=== PATIENT | male | born 1950 | race Two or more races ===

== ENCOUNTER 2017-11-05 18:15 | Inpatient (IN) | payer MEDICARE, OTHER ==
[~2017-11-05] VITALS: Ht 167.6 cm; Wt 66.2 kg
[2017-11-05] MEDS ORDERED: IV NORMAL SALINE 500 ML BAG IV ONE (18:45)
[2017-11-05 18:49] LABS: BASOPHILS # (AUTO) 0.1 K/uL (0.0-8.0); BASOPHILS % (AUTO) 1.4 % (0.0-2.0); EOSINOPHILS # (AUTO) 0.1 K/uL (0.0-0.7); EOSINOPHILS % (AUTO) 1.3 % (0.0-7.0); HEMATOCRIT 37.1 % (36.7-47.1); HEMOGLOBIN 12.4 g/dL (12.5-16.3); LYMPHOCYTES # (AUTO) 1.2 K/uL (20.0-40.0); MEAN CORPUSCULAR HEMOGLOBIN 28.3 uug (23.8-33.4); MEAN CORPUSCULAR HGB CONC 33 g/dL (32.5-36.3); MEAN CORPUSCULAR VOLUME 84.9 fL (73.0-96.2); MONOCYTES # (AUTO) 0.8 K/uL (2.0-10.0); MONOCYTES % (AUTO) 16.6 % (0.0-11.0); NEUTROPHILS # (AUTO) 2.5 K/uL (1.8-8.9); NEUTROPHILS % (AUTO) 54.7 % (38.5-71.5); PLATELET COUNT (AUTO) 449 K/uL (152-348); RED BLOOD CELL COUNT(AUTO) 4.37 MIL/uL (4.06-5.63); WHITE BLOOD COUNT (AUTO) 4.6 K/uL (3.6-10.2)
[2017-11-05 18:55] LABS: NEUTROPHILS % (MANUAL) 0 % (42-75)
[2017-11-05] MEDS ORDERED: ALPR0.255 PO ×2 (18:59→19:00)
[2017-11-05] MEDS ORDERED: LEVE500T20 PO (18:59)
[2017-11-05] MEDS ORDERED: ACET-2154 PO (18:59)
[2017-11-05] MEDS ORDERED: ASPI-605 PO (18:59)
[2017-11-05] MEDS ORDERED: TRAM50TA2 PO (18:59)
[2017-11-05] MEDS ORDERED: CHOL100043 PO (18:59)
[2017-11-05] MEDS ORDERED: DOCU100C36 PO (18:59)
[2017-11-05] MEDS ORDERED: RANI150T8 PO (18:59)
[2017-11-05] MEDS ORDERED: ATOR20TA PO (18:59)
[2017-11-05 19:04] LABS: BILIRUBIN,DIRECT 0.1 mg/dL (0.0-0.2); BILIRUBIN,TOTAL 0.3 mg/dL (0.2-1.0); CREATININE 0.8 mg/dL (0.6-1.3); POTASSIUM 3.8 mmol/L (3.5-5.1); TOTAL PROTEIN, SERUM 7.5 g/dL (6.4-8.2)
--- NOTE | 2017-11-05 19:14 | NUR ---
Pt back to ER from CT.
--- NOTE | 2017-11-05 19:25 | NUR ---
Urine Sample collected, sent to lab.
[2017-11-05 19:45] LABS: *BILIRUBIN,URIN NEGATIVE (NEGATIVE); *BLOOD, URINE Trace-intact (NEGATIVE); *CLARITY,URINE SLIGHTLY CLOUDY (CLEAR); *COLOR,URINE YELLOW (YELLOW); *KETONES,URINE NEGATIVE (NEGATIVE); *PROTEIN,URINE NEGATIVE (NEGATIVE); *UROBILINOGEN,URINE 0.2 E.U./dl (NORMAL); LEUKOCYTE ESTERASE ,URINE NEGATIVE (NEGATIVE); NITRITE, URINE NEGATIVE (NEGATIVE); UGLUCOSE NEGATIVE (NEGATIVE)
[2017-11-05 19:48] LABS: BACTERIA,URINE NONE SEEN /HPF (NONE SEEN); SQUAMOUS EPITHELIAL CELL,UR FEW /HPF (NONE SEEN); WBC,URINE 0-3 /HPF (0-3)
--- NOTE | 2017-11-05 19:48 | NUR ---
Dr. Alston speaking with [employer] MANDY Molina.
[2017-11-05] MEDS ORDERED: ASPIRIN 300 MG RECTAL SUPP RC ONE ×2 (20:00→20:06)
[2017-11-05] MEDS ORDERED: Z GUARD REMEDY PASTE 57 GM TUBE TOP PRN (20:15)
[2017-11-05] MEDS ORDERED: HYDROCODONE/APAP 5-325MG TABLET PO PRN (20:15)
[2017-11-05] MEDS ORDERED: ALPRAZOLAM 0.25 MG TABLET PO PRN (20:15)
[2017-11-05] MEDS ORDERED: MAGNESIUM HYDROXIDE 30 ML LIQUID UDC PO PRN (20:15)
[2017-11-05] MEDS ORDERED: ONDANSETRON 4 MG/2 ML VIAL IV PRN (20:15)
[2017-11-05] MEDS ORDERED: HYDROCODONE/APAP 10-325 MG TABLET PO PRN (20:15)
[2017-11-05] MEDS ORDERED: ACETAMINOPHEN 325 MG TABLET PO PRN (20:15)
--- NOTE | 2017-11-05 20:21 | NUR ---
Report given to Otis ABDI Tele.
[2017-11-05 20:25] VITALS: BP 105/64
--- NOTE | 2017-11-05 20:40 | NUR ---
NEW ADMIT FROM ER, ADMITTED FOR LEFT SIDED WEAKNESS. PATIENT IS AAXO1 WITH CONFUSION. NO S/S OF PAIN ACUTE DISTRESS ON ASSESSMENT. PATIENT IS ON TELE WITH SR AT 70. SAFETY AND ASPIRATION PRECAUTIONS IN PLACE. WILL CONTINUE TO MONITOR PATIENT
[2017-11-05] MEDS: DOCUSATE SODIUM 100 MG CAPSULE PO SCH (21:42)
[2017-11-05] MEDS: IV NS 1000 ML 1,000 ML IV PRN (21:42)
[2017-11-05 23:37] VITALS: BP 109/63
[2017-11-06 03:39] VITALS: BP 117/70
[2017-11-06 06:14] LABS: BASOPHILS # (AUTO) 0.1 K/uL (0.0-8.0); BASOPHILS % (AUTO) 1.5 % (0.0-2.0); EOSINOPHILS # (AUTO) 0.1 K/uL (0.0-0.7); EOSINOPHILS % (AUTO) 1.8 % (0.0-7.0); HEMATOCRIT 36.8 % (36.7-47.1); HEMOGLOBIN 12.2 g/dL (12.5-16.3); LYMPHOCYTES # (AUTO) 1.2 K/uL (20.0-40.0); LYMPHOCYTES % (AUTO) 29.7 % (20.5-51.5); MEAN CORPUSCULAR HEMOGLOBIN 28.4 uug (23.8-33.4); MEAN CORPUSCULAR HGB CONC 33 g/dL (32.5-36.3); MEAN CORPUSCULAR VOLUME 85.6 fL (73.0-96.2); MONOCYTES # (AUTO) 0.6 K/uL (2.0-10.0); MONOCYTES % (AUTO) 15.3 % (0.0-11.0); NEUTROPHILS # (AUTO) 2.1 K/uL (1.8-8.9); NEUTROPHILS % (AUTO) 51.7 % (38.5-71.5); PLATELET COUNT (AUTO) 406 K/uL (152-348)
[2017-11-06 06:27] LABS: BILIRUBIN,DIRECT 0.1 mg/dL (0.0-0.2); BILIRUBIN,TOTAL 0.5 mg/dL (0.2-1.0); CREATININE 0.7 mg/dL (0.6-1.3); MAGNESIUM 1.8 mg/dL (1.8-2.4); PHOSPHOROUS 2.9 mg/dL (2.5-4.9); POTASSIUM 3.6 mmol/L (3.5-5.1); TOTAL PROTEIN, SERUM 6.9 g/dL (6.4-8.2)
--- NOTE | 2017-11-06 06:29 | NUR ---
PATIENT SLEPT WELL MOST OF THE SHIFT, NO S/S OF PAIN OR ACUTE DISTRESS ON THIS SHIFT. REMAINS CONFUSED, SAFETY MEASURES MAINTAINED AT ALL TIMES
[2017-11-06] MEDS: PANTOPRAZOLE SODIUM 40 MG VIAL IV SCH (08:15)
[2017-11-06] MEDS: ATORVASTATIN 20 MG TABLET PO SCH (08:16)
[2017-11-06] MEDS: LEVETIRACETAM 500 MG TABLET PO SCH ×2 (08:16→16:17)
[2017-11-06] MEDS: CHOLECALCIFEROL 1,000 UNIT TABLET PO SCH (08:16)
[2017-11-06 08:19] LABS: NEUTROPHILS % (MANUAL) 55 % (42-75)
[2017-11-06 08:20] LABS: EOSINOPHILS % (MANUAL) 2 % (0-8); LYMPHOCYTES % (MANUAL) 30 % (20-40); MONOCYTES % (MANUAL) 13 % (2-10)
[2017-11-06 11:13] VITALS: BP 107/66
--- NOTE | 2017-11-06 12:47 | NUR ---
DR DENNIS SAW PATIENT AND DOESN'T THINK MRI IS NECESSARY, NAE, MANDY AWARE AND D/C'D MRI ORDER. AMBULANCE WAS CANCELLED AND LEFT A MESSAGE FOR [facility]
[2017-11-06 15:06] VITALS: BP 105/63
--- NOTE | 2017-11-06 18:38 | NUR ---
Patient alert, able to follow some commands but remains confused. Positive for MRSA nares, placed on isolation and bactroban to be started today. Patient was able to work with PT today. VSS, bed alarm on, call light in reach
[2017-11-06 19:00] VITALS: BP 122/72
--- NOTE | 2017-11-06 19:44 | NUR ---
PATIENT IS AWAKE IN BED, AAOX1 WITH CONFUSION. ABLE TO FOLLOW SIMPLE DIRECTIONS AT TIMES. NO S/S OF PAIN OR ACUTE DISTRESS NOTED ON ASSESSMENT. SAFETY MEASURES IN PLACE. BED ALARM ON, CALL LGHT LEFT WITHIN PATIENT'S REACH
[2017-11-06] MEDS: DOCUSATE SODIUM 100 MG CAPSULE PO SCH (20:26)
[2017-11-06] MEDS: MUPIROCIN 2% OINT 22 GM TUBE NS SCH (20:26)
[2017-11-07 04:00] VITALS: BP 121/80
[2017-11-07] MEDS: IV NS 1000 ML 1,000 ML IV PRN (05:36)
--- NOTE | 2017-11-07 06:09 | NUR ---
PATIENT SLEPT WELL ON THIS SHIFT, CONTINUES TO BE CONFUSED. NO ACUTE DISTRESS OR ANY S/S OF PAIN NOTED ON THIS SHIFT. NO SIGNIFICANT CHANGES ON THIS SHIFT. SAFETY MEASURES MAINTAINED AT ALL TIMES
[2017-11-07 07:13] LABS: EOSINOPHILS # (AUTO) 0.1 K/uL (0.0-0.7); EOSINOPHILS % (AUTO) 1.2 % (0.0-7.0); HEMATOCRIT 35.9 % (36.7-47.1); HEMOGLOBIN 12.2 g/dL (12.5-16.3); LYMPHOCYTES # (AUTO) 1.3 K/uL (20.0-40.0); LYMPHOCYTES % (AUTO) 24.6 % (20.5-51.5); MEAN CORPUSCULAR HEMOGLOBIN 28.7 uug (23.8-33.4); MEAN CORPUSCULAR HGB CONC 34 g/dL (32.5-36.3); MEAN CORPUSCULAR VOLUME 84.9 fL (73.0-96.2); MONOCYTES # (AUTO) 0.6 K/uL (2.0-10.0); MONOCYTES % (AUTO) 10.7 % (0.0-11.0); NEUTROPHILS # (AUTO) 3.3 K/uL (1.8-8.9); NEUTROPHILS % (AUTO) 62.5 % (38.5-71.5); PLATELET COUNT (AUTO) 402 K/uL (152-348); RED BLOOD CELL COUNT(AUTO) 4.23 MIL/uL (4.06-5.63); WHITE BLOOD COUNT (AUTO) 5.2 K/uL (3.6-10.2)
[2017-11-07 07:23] LABS: CREATININE 0.8 mg/dL (0.6-1.3); POTASSIUM 3.4 mmol/L (3.5-5.1)
--- NOTE | 2017-11-07 07:41 | NUR ---
Sleeping, appears comfortable. IVF infusing. Contact precaution re enforced
[2017-11-07] MEDS: MUPIROCIN 2% OINT 22 GM TUBE NS SCH ×2 (08:56→20:30)
[2017-11-07] MEDS: PANTOPRAZOLE SODIUM 40 MG VIAL IV SCH (08:56)
[2017-11-07] MEDS: ATORVASTATIN 20 MG TABLET PO SCH (08:57)
[2017-11-07] MEDS: CHOLECALCIFEROL 1,000 UNIT TABLET PO SCH (08:57)
[2017-11-07] MEDS: LEVETIRACETAM 500 MG TABLET PO SCH ×2 (08:57→16:53)
--- NOTE | 2017-11-07 09:00 | NUR ---
Able to feed himself with tray set up and taking po medications
--- NOTE | 2017-11-07 10:00 | NUR ---
Noted at the edge of the foot of the bed with bed alarm on and saying "he's going to work" Repositioned back in bed comfortably. Bed alarm on
[2017-11-07 11:28] VITALS: BP 115/78
[2017-11-07] MEDS ORDERED: IV NS 1000 ML 1,000 ML IV ONE (11:45)
--- NOTE | 2017-11-07 11:45 | NUR ---
IVF rate decreased to 50ml/hr
[2017-11-07] MEDS ORDERED: POTASSIUM CHLORIDE 20 MEQ TAB.PRT.SR PO ONE (14:00)
[2017-11-07 15:28] VITALS: BP 120/77
--- NOTE | 2017-11-07 18:40 | NUR ---
Ate fairly. With BM after. Incontinence care done. Repositioned in bed comfortably. Bed alarm on.
--- NOTE | 2017-11-07 19:25 | NUR ---
RECEIVED PT AWAKE, ALERT, AND ORIENTEDX2.PT TRYING TO TAKE OUT HIS GOWN. IV INTACT AND PATENT. BECKHAM CATHETER INTACT. CALL LIGHT WITHIN REACH, BED ALARM ON ,AND IN LOW POSITION. SIDE RAILS UPX2. WILL CONTINUE TO MONITOR.
[2017-11-07 19:38] VITALS: BP 113/69
[2017-11-07] MEDS: DOCUSATE SODIUM 100 MG CAPSULE PO SCH (20:30)
[2017-11-08 03:40] VITALS: BP 138/78
--- NOTE | 2017-11-08 06:21 | NUR ---
PT SLEPT THROUGHOUT THE SHIFT . PT SHOWS NO SIGNS OF DISTRESS. PT IV INTACT AND PATENT. BECKHAM CATHETER INTACT. PRESCRIBED MEDICATION GIVEN AND PT TOLERATED IT WELL. PT TRYING TO TAKE OUT HIS GOWN. CALL LIGHT WITHIN REACH. BED ALARM ON AND IN LOW POSITION. WILL ENDORSE ACCORDINGLY TO INCOMING SHIFT NURSE.
[2017-11-08] MEDS ORDERED: PANTOPRAZOLE SODIUM 40 MG TABLET.DR PO SCH (07:00)
[2017-11-08 07:31] LABS: CREATININE 0.8 mg/dL (0.6-1.3); POTASSIUM 3.3 mmol/L (3.5-5.1)
--- NOTE | 2017-11-08 07:38 | NUR ---
Sleeping, not in distress. Appears comfortable
[2017-11-08] MEDS: ATORVASTATIN 20 MG TABLET PO SCH (08:46)
[2017-11-08] MEDS: LEVETIRACETAM 500 MG TABLET PO SCH ×2 (08:46→17:22)
[2017-11-08] MEDS: MUPIROCIN 2% OINT 22 GM TUBE NS SCH (08:46)
[2017-11-08] MEDS: CHOLECALCIFEROL 1,000 UNIT TABLET PO SCH (08:46)
[2017-11-08] MEDS ORDERED: POTASSIUM CHLORIDE 20 MEQ TAB.PRT.SR PO ONE (10:30)
[2017-11-08 11:28] VITALS: BP 110/73
[2017-11-08 15:18] VITALS: BP 125/69
--- NOTE | 2017-11-08 16:06 | NUR ---
With discharge order to SNF. Coordinated back to [facility]. Report given to Seth. Ambulance pick [phone]
--- NOTE | 2017-11-08 18:22 | NUR ---
Saline lock removed. Ate dinner fairly. Discharged per gurney/ambulance in fair condition, not in distress, afebrile.
== END 2017-11-08 18:40 | DRG 91 ==
LOC: ER 18:18 → TELE 20:31 → MED 11-06 15:48
PROVIDERS: ADMIT Nurse Practitioner Acute Care; ATTEND Nurse Practitioner Acute Care
PROC: 05H533Z Insertion of Infusion Device into Right Subclavian Vein, Percutaneous Approach (ICD-10-PCS; principal; 2017-11-06)
DX: R29.818 Other symptoms and signs involving the nervous system (principal); G93.40 Encephalopathy, unspecified; E46 Unspecified protein-calorie malnutrition; S06.9X0S Unspecified intracranial injury without loss of consciousness, sequela; X58.XXXS Exposure to other specified factors, sequela; R13.10 Dysphagia, unspecified; M95.2 Other acquired deformity of head; N40.0 Benign prostatic hyperplasia without lower urinary tract symptoms; Z87.440 Personal history of urinary (tract) infections; E78.5 Hyperlipidemia, unspecified; I70.0 Atherosclerosis of aorta; G93.89 Other specified disorders of brain; Z22.322 Carrier or suspected carrier of Methicillin resistant Staphylococcus aureus
CPT/HCPCS: 36415; 70030-TC; 70450; 71045; 83690; 83735; 84100; 85025; 87086; 92610; 93005; 93307; 93880; 97110; 97116; 97165; 97530; A4663; C1758; C9113; J7030; J7040

== ENCOUNTER 2017-11-24 00:53 | Inpatient (IN) | payer MEDICARE, OTHER ==
[~2017-11-24] VITALS: Ht 167.6 cm; Wt 68.9 kg
[2017-11-24] VITALS (10 sets, daily range): BP systolic 94–131; BP diastolic 57–77
[~2017-11-24 00:53] MED LIST: ACET-2154 PO; ALPR0.255 PO; ASPI-605 PO; ATOR20TA PO; CHOL100043 PO; DOCU100C36 PO; LEVE500T20 PO; RANI150T8 PO; TRAM50TA2 PO
[2017-11-24 01:40] LABS: BASOPHILS % (AUTO) 0.4 % (0.0-2.0); EOSINOPHILS # (AUTO) 0.1 K/uL (0.0-0.7); EOSINOPHILS % (AUTO) 1.1 % (0.0-7.0); HEMOGLOBIN 12.7 g/dL (12.5-16.3); LYMPHOCYTES # (AUTO) 1.6 K/uL (20.0-40.0); LYMPHOCYTES % (AUTO) 17.3 % (20.5-51.5); MEAN CORPUSCULAR HEMOGLOBIN 28.5 uug (23.8-33.4); MEAN CORPUSCULAR HGB CONC 34 g/dL (32.5-36.3); MEAN CORPUSCULAR VOLUME 84.8 fL (73.0-96.2); MONOCYTES # (AUTO) 0.8 K/uL (2.0-10.0); MONOCYTES % (AUTO) 9.1 % (0.0-11.0); NEUTROPHILS # (AUTO) 6.5 K/uL (1.8-8.9); NEUTROPHILS % (AUTO) 72.1 % (38.5-71.5); PLATELET COUNT (AUTO) 225 K/uL (152-348); RED BLOOD CELL COUNT(AUTO) 4.48 MIL/uL (4.06-5.63)
[2017-11-24] MEDS ORDERED: PANTOPRAZOLE SODIUM IV 80 MG in IV DEXTROSE 5% 100 ML IV ONE (01:45)
[2017-11-24] MEDS ORDERED: PANTOPRAZOLE SODIUM IV 80 MG in IV DEXTROSE 5% 500 ML IV ONE (01:45)
--- NOTE | 2017-11-24 01:45 | NUR ---
[facility]. Waiting for Dr Mckeon to call back
[2017-11-24 01:49] LABS: CREATININE 0.9 mg/dL (0.6-1.3); POTASSIUM 3.8 mmol/L (3.5-5.1)
--- NOTE | 2017-11-24 01:49 | NUR ---
Dr Millan spoke with Dr Mckeon for admission
[2017-11-24 01:55] LABS: BILIRUBIN,DIRECT 0.1 mg/dL (0.0-0.2); BILIRUBIN,TOTAL 0.2 mg/dL (0.2-1.0); TOTAL PROTEIN, SERUM 7.2 g/dL (6.4-8.2)
[2017-11-24] MEDS ORDERED: PANTOPRAZOLE SODIUM 40 MG VIAL ONE ×2 (02:08)
[2017-11-24] MEDS ORDERED: Z GUARD REMEDY PASTE 57 GM TUBE TOP PRN (02:15)
[2017-11-24] MEDS ORDERED: HYDROCODONE/APAP 5-325MG TABLET PO PRN (02:15)
[2017-11-24] MEDS ORDERED: ALPRAZOLAM 0.25 MG TABLET PO PRN (02:15)
[2017-11-24] MEDS ORDERED: ONDANSETRON 4 MG/2 ML VIAL IV PRN (02:15)
[2017-11-24] MEDS ORDERED: MAGNESIUM HYDROXIDE 30 ML LIQUID UDC PO PRN (02:15)
[2017-11-24] MEDS ORDERED: ACETAMINOPHEN 325 MG TABLET PO PRN (02:15)
--- NOTE | 2017-11-24 02:17 | NUR ---
REPORT GIVEN TO CCU NURSECARMEN
[2017-11-24] MEDS ORDERED: IV NORMAL SALINE 1000 ML BAG IV ONE (02:45)
--- NOTE | 2017-11-24 03:05 | NUR ---
Pt. admitted to CCU, under care of Dr. ENGLISH Belongs List completed
--- NOTE | 2017-11-24 03:15 | NUR ---
Received patient via juan david, from ER. Admited to CCU #4; as, DARY over-flow. NIKHIL @ 3mm. Wears helmet, cover flat frontal skull; skin intact. Small amount of bright red blood from rectum & small brown formed stool; wears diaper. Protonix gtt to left PIV via pump. SR / monitor. Non-verbal at this time. Addendum: 11/24/17 at 0412 by CARMEN GRAF RN Does not move lower extremities, at this time. Upper extremities very strong.
[2017-11-24 05:14] LABS: BASOPHILS % (AUTO) 0.4 % (0.0-2.0); EOSINOPHILS # (AUTO) 0.1 K/uL (0.0-0.7); EOSINOPHILS % (AUTO) 1.2 % (0.0-7.0); HEMATOCRIT 36.3 % (36.7-47.1); HEMOGLOBIN 11.9 g/dL (12.5-16.3); LYMPHOCYTES # (AUTO) 1.3 K/uL (20.0-40.0); LYMPHOCYTES % (AUTO) 17.7 % (20.5-51.5); MEAN CORPUSCULAR HEMOGLOBIN 27.6 uug (23.8-33.4); MEAN CORPUSCULAR HGB CONC 33 g/dL (32.5-36.3); MEAN CORPUSCULAR VOLUME 84.1 fL (73.0-96.2); MONOCYTES # (AUTO) 0.6 K/uL (2.0-10.0); MONOCYTES % (AUTO) 7.8 % (0.0-11.0); NEUTROPHILS # (AUTO) 5.5 K/uL (1.8-8.9); NEUTROPHILS % (AUTO) 72.9 % (38.5-71.5); PLATELET COUNT (AUTO) 192 K/uL (152-348); RED BLOOD CELL COUNT(AUTO) 4.32 MIL/uL (4.06-5.63); WHITE BLOOD COUNT (AUTO) 7.5 K/uL (3.6-10.2)
[2017-11-24 05:18] LABS: CREATININE 0.9 mg/dL (0.6-1.3); POTASSIUM 3.7 mmol/L (3.5-5.1)
[2017-11-24] MEDS: IV NS 1000 ML 1,000 ML IV PRN ×2 (07:36→20:51)
--- NOTE | 2017-11-24 07:58 | NUR ---
RECEIVED A 67 Y/O MALE PT A CASE OF GI BLEEDING. PT IS ASLEEP THOUGH ALERT DISORIENTED, BREATHING VIA ROOM AIR, CONNECTED TO ECG MONITOR SHOWING SR PT IS WEARING A HELMET TO COVER HIS FRONTAL SKULL DUE TO PREVIOUS CRANIOTOMY. HAS A LT PERIPHERAL LINE ON HIS WRIST G20 RECEIVING PROTONIX 8MG/HR.PT IS INCONTINENT AND URINATING FREELY
[2017-11-24] MEDS: PANTOPRAZOLE SODIUM IV 40 MG in IV DEXTROSE 5% 100 ML IV SCH ×2 (08:27→14:00)
[2017-11-24] MEDS: LEVETIRACETAM 500 MG TABLET PO SCH ×2 (08:59→17:40)
[2017-11-24 09:41] LABS: THYROID STIMULATING HORMONE 0.555 mIU/mL (0.358-3.740)
[2017-11-24] MEDS ORDERED: PANTOPRAZOLE SODIUM 40 MG VIAL IV SCH (21:00)
[2017-11-24] MEDS ORDERED: DIATR MEGLU/DIATRIZOATE SODIUM 30 ML SOLUTION ONE (22:13)
[2017-11-24] MEDS ORDERED: MAGNESIUM CITRATE 296 ML BOTTLE PO ONE (22:30)
--- NOTE | 2017-11-24 22:40 | NUR ---
SPOKE TO , ABOUT PROCEDURES THAT SHE WANTED THE PT TO GO THRU., ORDERS OBTAINED.
--- NOTE | 2017-11-24 22:50 | NUR ---
OBTAINED CONSENT FOR BLOOD FROM DAUGHTER NICO.
--- NOTE | 2017-11-24 22:50 | NUR ---
SPOKE TO PT DAUGHTER NICO ABOUT CT ABDOMEN PROCEDURE, EGD AND COLONOSCOPY.. UNDERSTOOD REASONS FOR THESE TESTS. OBTAINED PHONE CONSENT. FOR THESE TESTS.
[2017-11-24] MEDS ORDERED: FLEET ENEMA 133 ML BOTTLE RC ONE (23:00)
[2017-11-24] MEDS ORDERED: GOLYTELY 4000 ML BOTTLE PO ONE (23:00)
[2017-11-25] VITALS (7 sets, daily range): BP systolic 99–125; BP diastolic 52–78
[2017-11-25] MEDS ORDERED: FLEET ENEMA 133 ML BOTTLE RC ONE ×2 (03:03→18:00)
[2017-11-25] MEDS ORDERED: MAGNESIUM CITRATE 296 ML BOTTLE ONE (03:03)
[2017-11-25] MEDS ORDERED: IV NORMAL SALINE 250 ML IV ONE (04:01)
[2017-11-25] MEDS ORDERED: SWABABLE VALVE TRANSFER SET EA MC ONE (04:01)
[2017-11-25] MEDS ORDERED: IOHEXOL 300MG/ML 100 ML INFUS..BTL ONE (04:01)
--- NOTE | 2017-11-25 04:10 | NUR ---
went down for cr of abdomen/pelvis.
--- NOTE | 2017-11-25 04:45 | NUR ---
BACK FROM CT TOLERATED PROCEDURE WELL.
[2017-11-25 05:57] LABS: BASOPHILS % (AUTO) 0.7 % (0.0-2.0); EOSINOPHILS # (AUTO) 0.1 K/uL (0.0-0.7); EOSINOPHILS % (AUTO) 1.7 % (0.0-7.0); HEMATOCRIT 35.2 % (36.7-47.1); HEMOGLOBIN 11.8 g/dL (12.5-16.3); LYMPHOCYTES # (AUTO) 1.2 K/uL (20.0-40.0); LYMPHOCYTES % (AUTO) 18.7 % (20.5-51.5); MEAN CORPUSCULAR HEMOGLOBIN 28.7 uug (23.8-33.4); MEAN CORPUSCULAR HGB CONC 33 g/dL (32.5-36.3); MEAN CORPUSCULAR VOLUME 85.9 fL (73.0-96.2); MONOCYTES # (AUTO) 0.6 K/uL (2.0-10.0); MONOCYTES % (AUTO) 9.5 % (0.0-11.0); NEUTROPHILS # (AUTO) 4.5 K/uL (1.8-8.9); NEUTROPHILS % (AUTO) 69.4 % (38.5-71.5); PLATELET COUNT (AUTO) 195 K/uL (152-348); WHITE BLOOD COUNT (AUTO) 6.4 K/uL (3.6-10.2)
[2017-11-25 06:12] LABS: BILIRUBIN,TOTAL 0.7 mg/dL (0.2-1.0); CREATININE 0.9 mg/dL (0.6-1.3); MAGNESIUM 1.8 mg/dL (1.8-2.4); PHOSPHOROUS 3.3 mg/dL (2.5-4.9); POTASSIUM 3.9 mmol/L (3.5-5.1)
--- NOTE | 2017-11-25 07:30 | NUR ---
RECIEVED PT LYING IN BED, AWAKE AND VERBALLY RESPONSIVE WITH SOFT VOICE. SPEAKS ONLY HONDURAN. ALL EXTREMETIES ARE WEAK, LOWER LEGS ARE STIFFED.AND RIGID. HR SR NO ECTOPY. COLOR IS GOOD. MAIN IVF ON THE LEFT FA INFUSING WELL AT 75ML/HR. KEPT NPO, PENDING SCHEDULE FOR EGD AND COLONOSCOPY.
--- NOTE | 2017-11-25 08:00 | NUR ---
SEEN AND EXAMINED BY EMPERATRIZ PANEL LAY UP WORKER WITH NEW ORDERS. PT DOWNGRADED TO MEDSURG STATUS. HOUSE SUP MADE AWARE.
--- NOTE | 2017-11-25 08:00 | NUR ---
HAS VERY SMALL LIQUID BM, ORANGE RED IN COLOR. CLEANED UP. OFFERED ANOTHER CUP OF GOLYTELY AND ABLE TO SWALLOW VERY WELL.
--- NOTE | 2017-11-25 08:30 | NUR ---
CALLED UP QUINTEN GALVAN REGARDING PT'S PROCEEDURE AND INFORMED HER OF CT RESULT. NO PROCEEDURE SCHEDULE FOR TODAY, BUT MOVED FOR TOMORROW. PLACED PT ON CLEAR LIQUIDS ORDERED.
--- NOTE | 2017-11-25 09:30 | NUR ---
BED ASSIGNED TO PT TO RM 209. REPORT GIVEN TO ANTHONY ABDI. PT TRANSFERRED TO RM 209 VIA BED. CONDITION IS STABLE. NO BLEEDING NOTED AT THIS TIME.
--- NOTE | 2017-11-25 11:17 | NUR ---
PT ARRIVED TO THE UNIT, WITH NO ACUTE DISTRESS, CALM, COOPERATIVE, SPEAKS SLOWLY AND PROCESSES THOUGHTS SLOWLY, WEAKNESS IN ALL EXTREMITIES. PT HAS NO SIGNS OF ACUTE DISTRESS AT THIS TIME. CONTINUE TO MONITOR PT.
[2017-11-25] MEDS: LEVETIRACETAM 500 MG TABLET PO SCH ×2 (11:35→20:33)
[2017-11-25] MEDS: PANTOPRAZOLE SODIUM 40 MG VIAL IV SCH ×2 (11:35→20:33)
[2017-11-25] MEDS: IV NS 1000 ML 1,000 ML IV PRN (13:05)
[2017-11-25] MEDS ORDERED: GOLYTELY 4000 ML BOTTLE PO ONE (18:00)
[2017-11-25] MEDS ORDERED: MAGNESIUM CITRATE 296 ML BOTTLE PO ONE (18:00)
--- NOTE | 2017-11-25 18:37 | NUR ---
PT HAS VERY LOOSE STOOL. ENEMA HELD.
--- NOTE | 2017-11-25 19:20 | NUR ---
RECEIVED PATIENT LYING IN BED. AOX1. RWANDAN SPEAKING ONLY. IN NO ACUTE DISTRESS. APPEARS CALM AND RELAX. IV SITE ON BOTH FA INTACT AND PATENT. IVF INFUSING ON LEFT HAND. SAFETY MEASURE INITIATED AND CALL JAY WITHIN REACH.
--- NOTE | 2017-11-25 19:46 | NUR ---
PT HAS MRSA OF THE NARES AND IS ON ISOLATION. PT IS RESTING IN BED WITH NO SIGNS OF ACUTE DISTRESS. SHIFT REPORT GIVEN TO BELLPERSON NURSE.
--- NOTE | 2017-11-25 23:59 | NUR ---
PATIENT TOLERATED BOWEL PREP.
[2017-11-26] MEDS ORDERED: MUPIROCIN 2% OINT 22 GM TUBE NS SCH (02:00)
[2017-11-26] MEDS ORDERED: MUPIROCIN 2% OINT 22 GM TUBE ONE (02:25)
[2017-11-26] MEDS: IV NS 1000 ML 1,000 ML IV PRN ×2 (02:56→17:56)
[2017-11-26 05:17] VITALS: BP 134/75
[2017-11-26 05:20] VITALS: BP 134/75
--- NOTE | 2017-11-26 06:10 | NUR ---
TELEPHONE CALL TO DR EDWARD AND INFORMED HIM THAT PT STOOL STILL BROWN IN COLOR AND WITH MINIMAL AMOUNT OF SOLID PARTICLES. DR EDWARD STATED TO CANCEL COLONOSCOPY FOR TODAY AND WILL RESCHEDULE TOMORROW. NURSING PROGRAM ARRANGER BARNEY AND OR NURSE/MARCO A MADE AWARE.
--- NOTE | 2017-11-26 06:21 | NUR ---
AOX1. MAORI SPEAKING ONLY. IN NO ACUTE DISTRESS. IV SITE ON BOTH FA INTACT AND PATENT. IVF CONTINUE TO INFUSE ON LEFT HAND. SAFETY MEASURE MAINTAINED AND CALL JAY WITHIN REACH.
[2017-11-26 06:35] LABS: BASOPHILS % (AUTO) 0.8 % (0.0-2.0); EOSINOPHILS # (AUTO) 0.1 K/uL (0.0-0.7); EOSINOPHILS % (AUTO) 2.2 % (0.0-7.0); HEMATOCRIT 34.1 % (36.7-47.1); HEMOGLOBIN 11.5 g/dL (12.5-16.3); LYMPHOCYTES # (AUTO) 1.3 K/uL (20.0-40.0); LYMPHOCYTES % (AUTO) 27.2 % (20.5-51.5); MEAN CORPUSCULAR HEMOGLOBIN 28.2 uug (23.8-33.4); MEAN CORPUSCULAR HGB CONC 34 g/dL (32.5-36.3); MEAN CORPUSCULAR VOLUME 83.9 fL (73.0-96.2); MONOCYTES # (AUTO) 0.5 K/uL (2.0-10.0); MONOCYTES % (AUTO) 11.1 % (0.0-11.0); NEUTROPHILS # (AUTO) 2.8 K/uL (1.8-8.9); NEUTROPHILS % (AUTO) 58.7 % (38.5-71.5); PLATELET COUNT (AUTO) 203 K/uL (152-348); RED BLOOD CELL COUNT(AUTO) 4.07 MIL/uL (4.06-5.63); WHITE BLOOD COUNT (AUTO) 4.8 K/uL (3.6-10.2)
[2017-11-26 07:08] LABS: CARBON DIOXIDE 25 mmol/L (21-32); CHLORIDE 109 mmol/L (98-107); CREATININE 0.6 mg/dL (0.6-1.3); GLUCOSE 92 mg/dL (74-106); POTASSIUM 3.1 mmol/L (3.5-5.1); UREA NITROGEN, BLOOD 4 mg/dL (7-18)
--- NOTE | 2017-11-26 07:27 | NUR ---
patient resting comfortably in bed at this time. EGD cancelled due to brown loose stool particles still present in bowel movement. bedrest at this time. bed alarm is on - fall risk. stable condition, no s/s of distress. will monitor for bleeding. bed in locked/low position, side rails upx2, bed alarm on, call light within reach of patient.
[2017-11-26] MEDS: MUPIROCIN 2% OINT 22 GM TUBE NS SCH ×2 (08:37→21:13)
[2017-11-26] MEDS: PANTOPRAZOLE SODIUM 40 MG VIAL IV SCH ×2 (08:37→21:10)
[2017-11-26] MEDS: LEVETIRACETAM 500 MG TABLET PO SCH ×2 (08:37→21:10)
[2017-11-26] MEDS ORDERED: GOLYTELY 4000 ML BOTTLE PO ONE (10:15)
[2017-11-26] MEDS ORDERED: POTASSIUM CHLORIDE 50 ML IV ONE (11:00)
[2017-11-26 11:45] VITALS: BP 125/65
[2017-11-26 14:49] LABS: *BILIRUBIN,URIN NEGATIVE (NEGATIVE); *BLOOD, URINE Trace-lysed (NEGATIVE); *CLARITY,URINE CLEAR (CLEAR); *COLOR,URINE LIGHT YELLOW (YELLOW); *KETONES,URINE NEGATIVE (NEGATIVE); *PROTEIN,URINE NEGATIVE (NEGATIVE); *UROBILINOGEN,URINE 0.2 E.U./dl (NORMAL); LEUKOCYTE ESTERASE ,URINE NEGATIVE (NEGATIVE); NITRITE, URINE NEGATIVE (NEGATIVE); PH,URINE 8.5 (5.0-8.0); UGLUCOSE NEGATIVE (NEGATIVE)
[2017-11-26 15:02] LABS: WBC,URINE 0-3 /HPF (0-3)
[2017-11-26 15:03] LABS: MUCUS,URINE FEW /LPF (0-FEW)
[2017-11-26 15:46] VITALS: BP 138/83
[2017-11-26] MEDS: VANCOMYCIN FOR PO/GT/NG USE PO SCH ×2 (17:42→23:37)
[2017-11-26] MEDS ORDERED: VANCOMYCIN FOR PO/GT/NG USE PO SCH (18:00)
--- NOTE | 2017-11-26 18:03 | NUR ---
EGD/COLONOSCOPY CANCELLED FOR PATIENT AT THIS TIME BY QUINTEN CASTILLO NP DUE TO POSITIVE RESULT FOR C.DIFF TOXIN. PATIENT NO LONGER DRINKING GO LIGHTLY. WILL NOT BE NPO AFTER MIDNIGHT. WILL CONTINUE CLEAR LIQUID DIET. IVF. CONTINUES TO HAVE BLOOD CLOTS WITH CLEAR BOWEL MOVEMENTS. SKIN CARE PROVIDED, SPECIALTY MATTRESS PLACED. BED ALARM ON, CALL LIGHT WITHIN REACH OF PATIENT.
[2017-11-26 19:28] VITALS: BP 128/73
--- NOTE | 2017-11-26 20:00 | NUR ---
PATIENT IS AWAKE IN BED, MUMBLES INCOHERENTLY VERY CONFUSED TRYING TO GET OOB. SAFETY MEASURES IN PLACE, BED IN LOW POSITION AND BED ALARM ON,WILL CONTINUE TO MONITOR PATIENT.
[2017-11-26] MEDS: METRONIDAZOLE 500 MG/NS 100ML 500 MG in PREMIXED 1 EACH IV SCH (21:10)
--- NOTE | 2017-11-27 01:30 | NUR ---
HANDSOFF REPORT FROM GAGAN RN. PT STABLE AND NO ACUTE DISTRESS NOTED. PT IV INTACT. SAFETY AND COMFORT PROVIDED. WILL CONTINUE TO MONITOR.
[2017-11-27 03:25] VITALS: BP 129/77
[2017-11-27] MEDS: VANCOMYCIN FOR PO/GT/NG USE PO SCH ×2 (05:20→12:00)
[2017-11-27] MEDS: METRONIDAZOLE 500 MG/NS 100ML 500 MG in PREMIXED 1 EACH IV SCH (05:20)
--- NOTE | 2017-11-27 06:34 | NUR ---
PT SLEPT THROUGHOUT THE SHIFT. PT SHOWS NO SIGNS OF DISTRESS. IV INTACT. PRESCRIBED MEDICATION GIVEN AND PT TOLERATED IT WELL. WILL ENDORSE TO DAYSHIFT NURSE FOR CONTINUITY OF CARE.
[2017-11-27 06:35] LABS: BASOPHILS % (AUTO) 0.9 % (0.0-2.0); EOSINOPHILS # (AUTO) 0.1 K/uL (0.0-0.7); EOSINOPHILS % (AUTO) 2.4 % (0.0-7.0); HEMATOCRIT 36.4 % (36.7-47.1); LYMPHOCYTES # (AUTO) 1.3 K/uL (20.0-40.0); LYMPHOCYTES % (AUTO) 28.5 % (20.5-51.5); MEAN CORPUSCULAR HEMOGLOBIN 27.9 uug (23.8-33.4); MEAN CORPUSCULAR HGB CONC 33 g/dL (32.5-36.3); MEAN CORPUSCULAR VOLUME 84.7 fL (73.0-96.2); MONOCYTES # (AUTO) 0.4 K/uL (2.0-10.0); NEUTROPHILS # (AUTO) 2.6 K/uL (1.8-8.9); NEUTROPHILS % (AUTO) 58.2 % (38.5-71.5); PLATELET COUNT (AUTO) 223 K/uL (152-348); WHITE BLOOD COUNT (AUTO) 4.4 K/uL (3.6-10.2)
[2017-11-27 06:40] LABS: CREATININE 0.7 mg/dL (0.6-1.3)
--- NOTE | 2017-11-27 07:36 | NUR ---
Patient resting comfortably in bed at this time. no s/s of distress. IVF running at this time. bed alarm on. fall risk. air mattress on. will monitor for bleeding. reorientation will be provided throughout shift.
[2017-11-27] MEDS: PANTOPRAZOLE SODIUM 40 MG VIAL IV SCH (08:39)
[2017-11-27] MEDS: MUPIROCIN 2% OINT 22 GM TUBE NS SCH (08:44)
[2017-11-27] MEDS: LEVETIRACETAM 500 MG TABLET PO SCH (08:44)
[2017-11-27] MEDS ORDERED: POTASSIUM CHLORIDE 20 MEQ TAB.PRT.SR PO ONE ×3 (09:45→13:00)
[2017-11-27] MEDS ORDERED: IV D5 1/2 NS 1000 ML 1,000 ML IV PRN (10:15)
[2017-11-27 11:46] VITALS: BP 128/80
--- NOTE | 2017-11-27 13:25 | NUR ---
patient discharged at this time in stable condition, no s/s of distress, vital signs wnl. no signs of bleeding noted. report given the [facility]. discharge packet, completed. id-band taken off, iv-access disconnected. patient safely discharged from [facility] with ambulance.
== END 2017-11-27 13:25 | DRG 377 ==
LOC: ER 00:55 → CCU 02:29 → MED 11-25 10:55
PROVIDERS: ADMIT Internal Medicine; ATTEND Internal Medicine
DX: K27.0 Acute peptic ulcer, site unspecified, with hemorrhage (principal); G93.40 Encephalopathy, unspecified; A04.72 Enterocolitis due to Clostridium difficile, not specified as recurrent; I69.954 Hemiplegia and hemiparesis following unspecified cerebrovascular disease affecting left non-dominant side; D68.59 Other primary thrombophilia; E46 Unspecified protein-calorie malnutrition; Z22.322 Carrier or suspected carrier of Methicillin resistant Staphylococcus aureus; E87.6 Hypokalemia; Z79.82 Long term (current) use of aspirin; Z79.899 Other long term (current) drug therapy; Z99.3 Dependence on wheelchair; D50.9 Iron deficiency anemia, unspecified; N40.0 Benign prostatic hyperplasia without lower urinary tract symptoms; Z87.440 Personal history of urinary (tract) infections; G40.909 Epilepsy, unspecified, not intractable, without status epilepticus; Z87.820 Personal history of traumatic brain injury; I69.398 Other sequelae of cerebral infarction; G93.89 Other specified disorders of brain; E78.5 Hyperlipidemia, unspecified; F41.9 Anxiety disorder, unspecified; Z98.890 Other specified postprocedural states; D50.0 Iron deficiency anemia secondary to blood loss (chronic)
CPT/HCPCS: 36415; 70030-TC; 71045; 82378; 83550; 83605; 83735; 84100; 84443; 85018; 85025; 85730; 86850; 86900; 86901; 93005; A4663; C9113; J3370; J3480; J3490; J7030; J7050; J7060; Q9963; Q9967

== ENCOUNTER 2018-04-18 19:09 | Inpatient (IN) | payer MEDICARE, OTHER ==
[~2018-04-18] VITALS: Ht 172.7 cm; Wt 79.4 kg
[~2018-04-18 19:09] MED LIST changes: -ASPI-605 PO
[2018-04-18] MEDS ORDERED: IV NORMAL SALINE 500 ML BAG IV ONE (19:15)
[2018-04-18] MEDS ORDERED: IV NORMAL SALINE 1000 ML BAG IV ONE (19:30)
[2018-04-18 19:36] LABS: BASOPHILS % (AUTO) 0.2 % (0.0-2.0); HEMATOCRIT 43.6 % (36.7-47.1); HEMOGLOBIN 14.9 g/dL (12.5-16.3); LYMPHOCYTES # (AUTO) 0.9 K/uL (20.0-40.0); LYMPHOCYTES % (AUTO) 9.1 % (20.5-51.5); MEAN CORPUSCULAR HEMOGLOBIN 28.3 uug (23.8-33.4); MEAN CORPUSCULAR HGB CONC 34 g/dL (32.5-36.3); MONOCYTES # (AUTO) 0.8 K/uL (2.0-10.0); MONOCYTES % (AUTO) 8.6 % (0.0-11.0); NEUTROPHILS # (AUTO) 7.8 K/uL (1.8-8.9); NEUTROPHILS % (AUTO) 82.1 % (38.5-71.5); PLATELET COUNT (AUTO) 149 K/uL (152-348); RED BLOOD CELL COUNT(AUTO) 5.25 MIL/uL (4.06-5.63); WHITE BLOOD COUNT (AUTO) 9.4 K/uL (3.6-10.2)
[2018-04-18] MEDS ORDERED: CHOL10005 PO (19:47)
[2018-04-18] MEDS ORDERED: ASPI81TA31 PO (19:47)
[2018-04-18] MEDS ORDERED: TRAM50TA2 PO (19:47)
[2018-04-18] MEDS ORDERED: ATOR20TA PO (19:47)
[2018-04-18] MEDS ORDERED: LEVE500T20 PO (19:47)
[2018-04-18] MEDS ORDERED: RANI150T8 PO (19:47)
[2018-04-18 19:49] LABS: CREATININE 1.4 mg/dL (0.6-1.3); POTASSIUM 3.6 mmol/L (3.5-5.1)
[2018-04-18 20:03] LABS: BILIRUBIN,DIRECT 0.2 mg/dL (0.0-0.2); BILIRUBIN,TOTAL 0.6 mg/dL (0.2-1.0); TOTAL PROTEIN, SERUM 8.9 g/dL (6.4-8.2)
--- NOTE | 2018-04-18 20:20 | NUR ---
Call placed to [facility], Dr. Broderick has been paged.
[2018-04-18] MEDS ORDERED: OSELTAMIVIR PHOSPHATE 75 MG CAPSULE PO ONE (20:30)
--- NOTE | 2018-04-18 20:31 | NUR ---
JAN spoke to Dr. Broderick.
--- NOTE | 2018-04-18 20:35 | NUR ---
Call placed to [facility] for transportation to [facility]. Addendum: 04/18/18 at 2040 by KAR Reggie #[id number], ETA [id number].
--- NOTE | 2018-04-18 20:40 | NUR ---
[facility]
--- NOTE | 2018-04-18 20:49 | NUR ---
Call received from [facility], they stated they could not accept the patient back with a positive influenza result due to patient having two roommates and no capabilities to isolate the patient. JAN will attempt to admit patient to hospital service for convenience. [facility].
[2018-04-18] MEDS ORDERED: OSELTAMIVIR PHOSPHATE 75 MG CAPSULE ONE (20:59)
[2018-04-18] MEDS ORDERED: TRAMADOL HCL 50 MG TABLET PO PRN (21:15)
[2018-04-18] MEDS ORDERED: Z GUARD REMEDY PASTE 57 GM TUBE TOP PRN (21:15)
[2018-04-18] MEDS ORDERED: ONDANSETRON 4 MG/2 ML VIAL IV PRN (21:15)
[2018-04-18] MEDS ORDERED: MAGNESIUM HYDROXIDE 30 ML LIQUID UDC PO PRN (21:15)
[2018-04-18] MEDS ORDERED: HYDROCODONE/APAP 5-325MG TABLET PO PRN (21:15)
--- NOTE | 2018-04-18 21:18 | NUR ---
Pt. admitted to TELE, under care of Dr. Broderick Belongs List completed
--- NOTE | 2018-04-18 21:25 | NUR ---
RECEIVED PT FROM ER VIA KESHA. DX: INFLUENZA A POSITIVE. PT UNDER TELEMETRY. PT ON DROPLET PRECAUTION. PT STABLE. IN NO ACUTE DISTRESS. LONG TERM ASSESSMENT DONE. BELONGING LIST DONE. ADMISSION PROCESS AND CARE PLAN DONE. CALL LIGHT WITHIN REACH. SAFETY AND COMFORT PROVIDED. WILL CONTINUE TO MONITOR.
[2018-04-18] MEDS: IV NS 1000 ML 1,000 ML IV SCH (22:12)
[2018-04-18] MEDS: ACETAMINOPHEN 325 MG TABLET PO PRN (22:13)
[2018-04-18 22:35] VITALS: BP 114/70
--- NOTE | 2018-04-19 00:13 | NUR ---
PT HAVE 99.9 TEMPERATURE. GAVE COOLING MEASURES AND TYLENOL. PT TEMPERATURE NOW IS 98.3. PT AFEBRILE. SAFETY AND COMFORT PROVIDED. WILL CONTINUE TO MONITOR.
[2018-04-19 00:21] VITALS: BP 111/74
[2018-04-19 04:47] VITALS: BP 109/69
--- NOTE | 2018-04-19 06:15 | NUR ---
PT SLEPT THROUGHOUT THE SHIFT. PT SHOWS NO SIGNS OF ACUTE DISTRESS. PT AFEBRILE. VITAL SIGNS WITHIN NORMAL LIMIT. PRESCRIBED MEDICATION GIVEN AND PT TOLERATED IT WELL. SAFETY AND COMFORT PROVIDED. PT TURNED AND REPOSITIONED. WILL ENDORSE ACCORDINGLY TO INCOMING NURSE FOR CONTINUITY OF CARE.
[2018-04-19 06:39] LABS: CREATININE 0.9 mg/dL (0.6-1.3); MAGNESIUM 1.9 mg/dL (1.8-2.4); PHOSPHOROUS 3.3 mg/dL (2.5-4.9); POTASSIUM 3.5 mmol/L (3.5-5.1)
[2018-04-19 07:06] LABS: BASOPHILS % (AUTO) 0.2 % (0.0-2.0); HEMOGLOBIN 12.9 g/dL (12.5-16.3)
[2018-04-19 07:18] LABS: HEMATOCRIT 39.3 % (36.7-47.1); LYMPHOCYTES # (AUTO) 1.7 K/uL (20.0-40.0); LYMPHOCYTES % (AUTO) 26.7 % (20.5-51.5); MEAN CORPUSCULAR HGB CONC 33 g/dL (32.5-36.3); MEAN CORPUSCULAR VOLUME 85.1 fL (73.0-96.2); MONOCYTES # (AUTO) 0.9 K/uL (2.0-10.0); MONOCYTES % (AUTO) 13.2 % (0.0-11.0); NEUTROPHILS # (AUTO) 3.9 K/uL (1.8-8.9); NEUTROPHILS % (AUTO) 59.9 % (38.5-71.5); RED BLOOD CELL COUNT(AUTO) 4.62 MIL/uL (4.06-5.63)
[2018-04-19 07:19] LABS: PLATELET COUNT (AUTO) 111 K/uL (152-348); WHITE BLOOD COUNT (AUTO) 6.6 K/uL (3.6-10.2)
[2018-04-19] MEDS: IV NS 1000 ML 1,000 ML IV SCH ×2 (08:12→16:19)
[2018-04-19] MEDS ORDERED: Medication Not On Formulary EA (Cholecalciferol (Vitamin D3) (Vitamin D CAPSULE) 1,000 U PO SCH (09:00)
[2018-04-19] MEDS: CHOLECALCIFEROL 1,000 UNIT TABLET PO SCH (09:14)
[2018-04-19] MEDS: LEVETIRACETAM 500 MG TABLET PO SCH ×2 (09:14→16:18)
[2018-04-19] MEDS: ASPIRIN 81 MG TAB.CHEW PO SCH (09:14)
[2018-04-19] MEDS: FAMOTIDINE 20 MG TABLET PO SCH ×2 (09:14→16:18)
[2018-04-19] MEDS: OSELTAMIVIR PHOSPHATE 75 MG CAPSULE PO SCH ×2 (10:18→20:13)
[2018-04-19 11:45] VITALS: BP 112/63
[2018-04-19 15:57] VITALS: BP 114/65
--- NOTE | 2018-04-19 18:06 | NUR ---
Patient has been resting in bed through out the shift. patient denies any pain/discomfort at this time. Patients vital signs are within normal limits. Patient shows no signs/symptoms of acute distress. Patient is compliant with medication administration and medical treatment. Safety and comfort was provided throughout the shift. Patient has 3 bowel movements that are within normal limits, formed and brown. Patient is able to verbalize needs. Patient had no fever throughout the shift.
--- NOTE | 2018-04-19 19:20 | NUR ---
Received patient lying in bed. AAOX2-3. In no acute distress. VS WNL. Denies any pain or SOB. Mainly Yoruba speaking. IV site on left hand intact and patent. IVF infusing. Safety measure initiated and call jenkins within reach.
[2018-04-19 19:57] VITALS: BP 120/80
[2018-04-19] MEDS: ATORVASTATIN 20 MG TABLET PO SCH (20:13)
[2018-04-20] MEDS: IV NS 1000 ML 1,000 ML IV PRN ×2 (02:24→17:24)
[2018-04-20 04:20] VITALS: BP 103/60
--- NOTE | 2018-04-20 06:14 | NUR ---
AAOX2-3. Thai speaking only. In no acute distress. VS WNL. Denies any pain or SOB. On O2 at 4LPM via NC in place. O2 sat at 97%. Occasional productive cough and able to spit out phlegm. IV site on left hand intact and patent. IVF infusing. Isolation precaution maintained. Safety measure maintained and call jenkins within reach.
[2018-04-20 06:41] LABS: BASOPHILS % (AUTO) 0.3 % (0.0-2.0); EOSINOPHILS % (AUTO) 0.6 % (0.0-7.0); HEMATOCRIT 33.6 % (36.7-47.1); HEMOGLOBIN 11.3 g/dL (12.5-16.3); LYMPHOCYTES # (AUTO) 1.2 K/uL (20.0-40.0); LYMPHOCYTES % (AUTO) 25.5 % (20.5-51.5); MEAN CORPUSCULAR HEMOGLOBIN 28.1 uug (23.8-33.4); MEAN CORPUSCULAR HGB CONC 34 g/dL (32.5-36.3); MEAN CORPUSCULAR VOLUME 83.7 fL (73.0-96.2); MONOCYTES # (AUTO) 0.5 K/uL (2.0-10.0); NEUTROPHILS # (AUTO) 2.9 K/uL (1.8-8.9); NEUTROPHILS % (AUTO) 62.6 % (38.5-71.5); PLATELET COUNT (AUTO) 99 K/uL (152-348); RED BLOOD CELL COUNT(AUTO) 4.02 MIL/uL (4.06-5.63); WHITE BLOOD COUNT (AUTO) 4.6 K/uL (3.6-10.2)
[2018-04-20 07:00] LABS: CREATININE 0.8 mg/dL (0.6-1.3)
[2018-04-20 07:02] LABS: POTASSIUM 2.8 mmol/L (3.5-5.1)
--- NOTE | 2018-04-20 07:03 | NUR ---
Telephone call from carissa/Abdulaziz, reported lab value for Potassium=2.8. Will inform day shift nurse.
--- NOTE | 2018-04-20 08:30 | NUR ---
Received patient awake, alert x 2-3. With IV infusing well on left hand G18 NS at 100cc/hr. Not in any form of distress. With tolerable pain on left shoulder. Strict Droplet precautions maintained.
[2018-04-20] MEDS: OSELTAMIVIR PHOSPHATE 75 MG CAPSULE PO SCH ×2 (08:44→20:27)
[2018-04-20] MEDS: ASPIRIN 81 MG TAB.CHEW PO SCH (08:44)
[2018-04-20] MEDS: LEVETIRACETAM 500 MG TABLET PO SCH ×2 (08:44→17:24)
[2018-04-20] MEDS: FAMOTIDINE 20 MG TABLET PO SCH ×2 (08:44→17:24)
[2018-04-20] MEDS: CHOLECALCIFEROL 1,000 UNIT TABLET PO SCH (08:44)
[2018-04-20] MEDS: POTASSIUM CHLORIDE 50 ML IV SCH ×4 (10:07→13:11)
[2018-04-20] MEDS: ACETAMINOPHEN 325 MG TABLET PO PRN (11:02)
[2018-04-20 11:40] VITALS: BP 152/87
[2018-04-20 14:07] LABS: *BILIRUBIN,URIN NEGATIVE (NEGATIVE); *BLOOD, URINE 3+ (NEGATIVE); *CLARITY,URINE SLIGHTLY CLOUDY (CLEAR); *COLOR,URINE PINK (YELLOW); *KETONES,URINE NEGATIVE (NEGATIVE); *UROBILINOGEN,URINE 0.2 E.U./dl (NORMAL); LEUKOCYTE ESTERASE ,URINE NEGATIVE (NEGATIVE); NITRITE, URINE NEGATIVE (NEGATIVE); PH,URINE 7.5 (5.0-8.0); UGLUCOSE NEGATIVE (NEGATIVE)
[2018-04-20 14:19] LABS: RBC,URINE 20-50 /HPF (0-3); SQUAMOUS EPITHELIAL CELL,UR FEW /HPF (NONE SEEN); WBC,URINE 0-3 /HPF (0-3)
[2018-04-20 14:20] LABS: BACTERIA,URINE FEW /HPF (NONE SEEN)
[2018-04-20 14:34] LABS: *CREATININE,URINE 17.4 mg/dL (30-125); *URINE TOTAL PROTEIN RANDOM 12.9 mg/dL (<150/24HR)
[2018-04-20 15:06] VITALS: BP 139/76
--- NOTE | 2018-04-20 15:25 | NUR ---
Call from [facility] for MRSA (+) Postive for nares. Informed Dr. Yi, contact isolation, initiated. Bactroban ointment ordered.
--- NOTE | 2018-04-20 19:00 | NUR ---
RECEIVED PATIENT AWAKE, NO SOB NO CHEST PAIN, NO COMPLAIN OF PAIN, REMAINS IN DROPLET PRECAUTIONS DUE TO DX OF INFLUENZA A. PATIENT ON OXYGEN 4LPM FOR SOB, WITH SLIGHT EPISODE OF PRODUCTIVE COUGH, WITH WHITISH COLOR SPUTUM IN SMALL AMOUNT. ASSIST WITH ORAL CARE. KEPT CLEAN AND DRY, PATIENT VOIDING WELL, KEPT CLEAN AND DRY. CONT T MONITOR.
[2018-04-20 20:00] VITALS: BP 123/70
[2018-04-20] MEDS: ATORVASTATIN 20 MG TABLET PO SCH (20:27)
[2018-04-20] MEDS: MUPIROCIN 2% OINT 22 GM TUBE NS SCH (20:28)
[2018-04-21] MEDS: IV NS 1000 ML 1,000 ML IV PRN ×2 (03:33→16:13)
--- NOTE | 2018-04-21 06:04 | NUR ---
PATIENT SLEPT MOST OF THE NIGHT, AFEBRILE, NO SOB NO CHEST NOTED, NO COMPLAIN OF PAIN, REMAINS IN DROPLET PRECAUTION, GOOD HANDWASHING OBSERVED, PATIENT HAS SLIGHT PRODUCTIVE COUGH, ABLE TO SPIT WHITISH COLOR SPUTUM IN SMALL AMOUNT, TURN AND REPOSITION, VOIDING FREELY, NO S/S OF DISTRESS.
[2018-04-21 06:25] VITALS: BP 115/76
[2018-04-21 07:25] LABS: BASOPHILS % (AUTO) 0.3 % (0.0-2.0); HEMATOCRIT 34.1 % (36.7-47.1); HEMOGLOBIN 11.5 g/dL (12.5-16.3); LYMPHOCYTES # (AUTO) 1.3 K/uL (20.0-40.0); LYMPHOCYTES % (AUTO) 28.2 % (20.5-51.5); MEAN CORPUSCULAR HEMOGLOBIN 28.2 uug (23.8-33.4); MEAN CORPUSCULAR HGB CONC 34 g/dL (32.5-36.3); MEAN CORPUSCULAR VOLUME 83.9 fL (73.0-96.2); MONOCYTES # (AUTO) 0.5 K/uL (2.0-10.0); MONOCYTES % (AUTO) 10.4 % (0.0-11.0); NEUTROPHILS # (AUTO) 2.7 K/uL (1.8-8.9); NEUTROPHILS % (AUTO) 60.1 % (38.5-71.5); PLATELET COUNT (AUTO) 108 K/uL (152-348); RED BLOOD CELL COUNT(AUTO) 4.07 MIL/uL (4.06-5.63); WHITE BLOOD COUNT (AUTO) 4.5 K/uL (3.6-10.2)
[2018-04-21 07:31] LABS: CREATININE 0.7 mg/dL (0.6-1.3); MAGNESIUM 1.7 mg/dL (1.8-2.4)
[2018-04-21] MEDS: FAMOTIDINE 20 MG TABLET PO SCH ×2 (08:18→16:14)
[2018-04-21] MEDS: LEVETIRACETAM 500 MG TABLET PO SCH ×2 (08:18→16:14)
[2018-04-21] MEDS: CHOLECALCIFEROL 1,000 UNIT TABLET PO SCH (08:18)
[2018-04-21] MEDS: MUPIROCIN 2% OINT 22 GM TUBE NS SCH ×2 (08:22→20:38)
[2018-04-21] MEDS: OSELTAMIVIR PHOSPHATE 75 MG CAPSULE PO SCH ×2 (08:22→20:35)
[2018-04-21] MEDS: ASPIRIN 81 MG TAB.CHEW PO SCH (08:25)
--- NOTE | 2018-04-21 10:13 | NUR ---
Orders placed for PT eval as order per Dr. Gray
[2018-04-21] MEDS ORDERED: MAGNESIUM SULFATE/D5W 100 ML IV SCH (11:15)
[2018-04-21] MEDS ORDERED: POTASSIUM CHLORIDE 20 MEQ TAB.PRT.SR PO ONE (11:15)
[2018-04-21 11:33] VITALS: BP 118/69
[2018-04-21] MEDS ORDERED: POTASSIUM CHLORIDE 50 ML IV SCH (13:30)
[2018-04-21 15:30] VITALS: BP 111/60
--- NOTE | 2018-04-21 18:30 | NUR ---
PATIENT ALERT, IN NO DISTRESS. SEIZURE PRECAUTION OBSERVED. IVF RUNNING. PATIENT KEPT CLEAN/DRY.
--- NOTE | 2018-04-21 19:20 | NUR ---
Received patient lying in bed. AAOX1-2. Japanese speaking only. Denies any pain or SOB. On o2 at 4LPM via NC in place. O2 sat at 96%. IV site on left hand intact and patent. IVF infusing. Isolation precaution observed. Safety measure initiated and call jenkins within reach.
[2018-04-21 19:21] VITALS: BP 114/68
[2018-04-21] MEDS: ATORVASTATIN 20 MG TABLET PO SCH (20:35)
[2018-04-21] MEDS: ACETAMINOPHEN 325 MG TABLET PO PRN (20:35)
--- NOTE | 2018-04-21 22:00 | NUR ---
@2034 - Patient oral temp at 99.7. Cooling measure provided and Tylenol 650mg po given. Recheck oral temp. now, down to 98.7.
[2018-04-22] MEDS: IV NS 1000 ML 1,000 ML IV PRN (01:51)
[2018-04-22 03:24] VITALS: BP 114/66
--- NOTE | 2018-04-22 06:28 | NUR ---
AAOX1-2. Afebrile. Denies any pain or SOB. On O2 at 4LPM via NC in place. O2 sat at 97%. IV site on left hand remains intact and patent. IVF infusing. Needs assessed and attended to. Isolation precaution observed. Safety measure maintained and call jenkins within reach.
[2018-04-22 06:41] LABS: BASOPHILS % (AUTO) 0.4 % (0.0-2.0); EOSINOPHILS # (AUTO) 0.1 K/uL (0.0-0.7); EOSINOPHILS % (AUTO) 2.3 % (0.0-7.0); HEMATOCRIT 36.4 % (36.7-47.1); HEMOGLOBIN 12.2 g/dL (12.5-16.3); LYMPHOCYTES # (AUTO) 1.3 K/uL (20.0-40.0); MEAN CORPUSCULAR HEMOGLOBIN 27.9 uug (23.8-33.4); MEAN CORPUSCULAR HGB CONC 34 g/dL (32.5-36.3); MEAN CORPUSCULAR VOLUME 83.3 fL (73.0-96.2); MONOCYTES # (AUTO) 0.4 K/uL (2.0-10.0); MONOCYTES % (AUTO) 14.2 % (0.0-11.0); NEUTROPHILS # (AUTO) 1.1 K/uL (1.8-8.9); NEUTROPHILS % (AUTO) 38.1 % (38.5-71.5); PLATELET COUNT (AUTO) 110 K/uL (152-348); RED BLOOD CELL COUNT(AUTO) 4.37 MIL/uL (4.06-5.63); WHITE BLOOD COUNT (AUTO) 2.8 K/uL (3.6-10.2)
[2018-04-22 07:28] LABS: CREATININE 0.7 mg/dL (0.6-1.3); MAGNESIUM 1.9 mg/dL (1.8-2.4); POTASSIUM 3.4 mmol/L (3.5-5.1)
[2018-04-22] MEDS: OSELTAMIVIR PHOSPHATE 75 MG CAPSULE PO SCH (08:35)
[2018-04-22] MEDS: LEVETIRACETAM 500 MG TABLET PO SCH ×2 (08:36→16:19)
[2018-04-22] MEDS: FAMOTIDINE 20 MG TABLET PO SCH ×2 (08:36→16:19)
[2018-04-22] MEDS: MUPIROCIN 2% OINT 22 GM TUBE NS SCH (08:36)
[2018-04-22] MEDS: ASPIRIN 81 MG TAB.CHEW PO SCH (08:36)
[2018-04-22] MEDS: CHOLECALCIFEROL 1,000 UNIT TABLET PO SCH (08:36)
[2018-04-22 11:23] VITALS: BP 132/81
[2018-04-22] MEDS ORDERED: OSEL75CA PO (11:39)
--- NOTE | 2018-04-22 14:00 | NUR ---
PATIENT DISCHARGED TO [facility], AWAITING FOR AMBULANCE. PATIENT OFF OXYGEN THERAPY, SATURATING ON ROOM AIR AT 95%, IN NO DISTRESS, NO SOB.
[2018-04-22] MEDS ORDERED: POTASSIUM CHLORIDE 20 MEQ TAB.PRT.SR PO ONE (14:45)
[2018-04-22 15:16] VITALS: BP 137/76
--- NOTE | 2018-04-22 15:53 | NUR ---
REPORT GIVEN TO JIN MCCURDY FROM [facility]. ETA 17:30 PATIENT GOING TO ROOM 110A
--- NOTE | 2018-04-22 16:50 | NUR ---
PATIENT PICKED UP BY AMBULANCE, LEFT THE UNIT VIA GURNEY AND WITH PERSONAL HEADGEAR ON FOR PROTECTION/SAFETY. PATIENT ALERT, IN NO DISTRESS. IV ACCESS REMOVED.
== END 2018-04-22 16:55 | DRG 193 ==
LOC: ER 19:10 → TELE 21:07 → MED 04-19 11:25
PROVIDERS: ADMIT Hospitalist; ATTEND Nurse Practitioner Acute Care
DX: J10.1 Influenza due to other identified influenza virus with other respiratory manifestations (principal); N17.0 Acute kidney failure with tubular necrosis; G93.40 Encephalopathy, unspecified; N39.0 Urinary tract infection, site not specified; E87.1 Hypo-osmolality and hyponatremia; R65.10 Systemic inflammatory response syndrome (SIRS) of non-infectious origin without acute organ dysfunction; Z87.440 Personal history of urinary (tract) infections; E78.5 Hyperlipidemia, unspecified; F41.9 Anxiety disorder, unspecified; G40.909 Epilepsy, unspecified, not intractable, without status epilepticus; N40.0 Benign prostatic hyperplasia without lower urinary tract symptoms; Z87.820 Personal history of traumatic brain injury; R13.10 Dysphagia, unspecified; E87.6 Hypokalemia; E55.9 Vitamin D deficiency, unspecified; E86.1 Hypovolemia; R94.31 Abnormal electrocardiogram [ECG] [EKG]
CPT/HCPCS: 36415; 70030-TC; 71045; 83605; 83690; 83735; 84100; 84156; 84300; 85025; 85730; 87040; 87077; 87086; 87400; 93005; 97116; 97530; A4663; G0378; J2405; J3475; J3480; J7030; J7040

== ENCOUNTER 2019-07-31 16:00 | Inpatient (IN) | payer MEDICARE, OTHER ==
[~2019-07-31] VITALS: Ht 170.2 cm; Wt 71.2 kg
[~2019-07-31 16:00] MED LIST changes: -ALPR0.255 PO; +ASPI81TA31 PO; -CHOL100043 PO; +CHOL10005 PO; -DOCU100C36 PO; +OSEL75CA PO
[2019-07-31] MEDS ORDERED: IV NORMAL SALINE 1000 ML BAG IV ONE (16:15)
--- NOTE | 2019-07-31 16:40 | NUR ---
PT CAME IN VIA [facility]IVATE AMBULANCE VIA GURNEY PER EMT PT HAS HAD FEVER OF 100F-100.3F AT [facility] AND HAS NO APPETITE TODAY PT IS NONAMBULATORY RA Patient is AOX0, ABLE TO TRACK WITH BOTH EYES, RESPONDING VIA GESTURES, MOSTLY NONVERBAL.No cardiovascular distress noted. Rate and rhythm are regular. No CP. No respiratory distress noted. Respirations even & unlabored with symmetrical chest rise. No adventitious sounds noteD Patient denies Fever/Chills. SP CRANIOTOMY/NKDA. LBM was yesterday. W/ DIAPER
[2019-07-31 16:58] LABS: POTASSIUM 3.6 mmol/L (3.5-5.1)
[2019-07-31] MEDS ORDERED: MULT1TAB73 PO (16:58)
[2019-07-31] MEDS ORDERED: NA P133E RC (16:58)
[2019-07-31] MEDS ORDERED: ACCUCHECK (16:58)
[2019-07-31] MEDS ORDERED: MAGN400O6 PO (16:58)
[2019-07-31] MEDS ORDERED: METF-440 PO (16:58)
[2019-07-31] MEDS ORDERED: ACET-73 PO ×2 (16:58)
[2019-07-31] MEDS ORDERED: BISA10SU61 RC (16:58)
[2019-07-31] MEDS ORDERED: ACET-2154 PO (16:58)
[2019-07-31] MEDS ORDERED: VITAMIND3 PO (16:58)
[2019-07-31] MEDS ORDERED: CHOL-9 (16:58)
[2019-07-31] MEDS ORDERED: FAMO20TA8 PO (16:58)
[2019-07-31 17:04] LABS: BILIRUBIN,DIRECT 0.2 mg/dL (0.0-0.2); BILIRUBIN,TOTAL 0.4 mg/dL (0.2-1.0); TOTAL PROTEIN, SERUM 7.8 g/dL (6.4-8.2)
[2019-07-31 17:15] LABS: MAGNESIUM 1.7 mg/dL (1.8-2.4)
[2019-07-31 17:17] LABS: PHOSPHOROUS 3.8 mg/dL (2.5-4.9)
[2019-07-31 17:52] LABS: ABG BASE EXCESS 0.1 mmol/L; ABG HCO3 23.1 mmol/L; ABG PCO2 33.2 mmHg (35.0-45.0); ABG PO2 73.8 mmHg (75.0-100.0); ABG SITE RIGHT FEMORAL; ABG TOTAL HEMOGLOBIN 15.6 G/dL (13.5-18.0); COHb 1.1 % (0.5-1.5); MetHb 0.3 % (0.0-1.5); O2Hb 94.2 % (94.0-97.0); VENT MODE room air
[2019-07-31 17:56] LABS: BASOPHILS % (AUTO) 0.3 % (0.0-2.0); EOSINOPHILS % (AUTO) 0.2 % (0.0-7.0); HEMATOCRIT 44.1 % (36.7-47.1); LYMPHOCYTES # (AUTO) 1.3 K/uL (20.0-40.0); LYMPHOCYTES % (AUTO) 31.9 % (20.5-51.5); MEAN CORPUSCULAR HEMOGLOBIN 30.6 uug (23.8-33.4); MEAN CORPUSCULAR HGB CONC 34 g/dL (32.5-36.3); MEAN CORPUSCULAR VOLUME 89.9 fL (73.0-96.2); MONOCYTES # (AUTO) 0.4 K/uL (2.0-10.0); MONOCYTES % (AUTO) 11.1 % (0.0-11.0); NEUTROPHILS # (AUTO) 2.2 K/uL (1.8-8.9); NEUTROPHILS % (AUTO) 56.5 % (38.5-71.5); PLATELET COUNT (AUTO) 113 K/uL (152-348)
[2019-07-31 17:59] LABS: CREATINE KINASE, TOTAL 361 U/L (39-308); LACTATE DEHYDROGENASE 234 U/L (85-227)
[2019-07-31] MEDS ORDERED: BISACODYL 10 MG SUPP.RECT RC PRN (18:15)
[2019-07-31 18:21] LABS: *BILIRUBIN,URIN NEGATIVE (NEGATIVE); *CLARITY,URINE CLOUDY (CLEAR); *COLOR,URINE YELLOW (YELLOW); *KETONES,URINE NEGATIVE (NEGATIVE); NITRITE, URINE POSITIVE (NEGATIVE); UGLUCOSE NEGATIVE (NEGATIVE)
[2019-07-31 18:23] LABS: FERRITIN 134 ng/mL (26-388)
[2019-07-31 18:27] LABS: *BLOOD, URINE TRACE (NEGATIVE)
[2019-07-31 18:28] LABS: BACTERIA,URINE MANY /HPF (NONE SEEN); LEUKOCYTE ESTERASE ,URINE TRACE (NEGATIVE); SQUAMOUS EPITHELIAL CELL,UR MODERATE /HPF (NONE SEEN)
[2019-07-31] MEDS ORDERED: Z GUARD REMEDY PASTE 57 GM TUBE TOP PRN (18:30)
[2019-07-31] MEDS ORDERED: ONDANSETRON 4 MG/2 ML VIAL IV PRN (18:30)
--- NOTE | 2019-07-31 18:42 | NUR ---
PICC LINE INSERTION REQUIRED BRIAR CUTTER AWARE AND STATES SHE WILL CONTACT PICC LINE INSERTION ON DUTY
--- NOTE | 2019-07-31 18:51 | NUR ---
KEITH ON THE PHONE WITH ERMD REMOVED FROM O2 VIA NC OK TO ADMIT TO TELE RM DX: PNEUMONIA O2SAT AT 99%
--- NOTE | 2019-07-31 19:00 | NUR ---
RHAND OFF AND SBAR GIVEN TO INCOMING HARDWARE ENGINEER RN
--- NOTE | 2019-07-31 19:04 | NUR ---
PICC LINE INSERTION ON DUTY WILL COME ON 2299
--- NOTE | 2019-07-31 19:04 | NUR ---
CALLED FOR REPORT NURSE WILL CALL BACK.
--- NOTE | 2019-07-31 20:00 | NUR ---
PATIENT IN BED FALL PRECAUTIONS DONE. IV SITE PATENT.
[2019-07-31] MEDS ORDERED: FUROSEMIDE 40 MG/4 ML VIAL IV ONE (20:30)
--- NOTE | 2019-07-31 20:45 | NUR ---
Geremias Weinberg DOOR TO DOOR SALESMAN AT BEDSIDE.
[2019-07-31] MEDS ORDERED: AZITHROMYCIN 500MG/ D5W 250ML IVPB **ER PYXIS ONLY IV ONE (21:20)
[2019-07-31] MEDS ORDERED: CEFEPIME HCL 1 G VIAL ONE (21:20)
--- NOTE | 2019-07-31 21:30 | NUR ---
Patient is on the telemetry floor, transferring to the bed.
[2019-07-31 22:06] VITALS: BP 125/73
[2019-07-31] MEDS: levETIRAcetam 500 MG TABLET PO SCH (22:17)
[2019-07-31] MEDS: ATORVASTATIN 20 MG TABLET PO SCH (22:17)
[2019-07-31] MEDS: ZINC SULFATE 220 MG CAPSULE PO SCH (22:17)
[2019-07-31] MEDS: HYDROXYCHLOROQUINE SULFATE 200 MG TABLET PO SCH (22:17)
[2019-07-31] MEDS: AZITHROMYCIN IV 500 MG in IV DEXTROSE 5% 250 ML IV SCH (22:18)
[2019-07-31] MEDS: CEFEPIME HCL 2 G in IV DEXTROSE 5% 100 ML IV SCH (22:25)
[2019-07-31] MEDS: ACETAMINOPHEN 325 MG TABLET PO PRN (22:59)
--- NOTE | 2019-07-31 23:11 | NUR ---
Patient took all his oral meds, was given tylenol for fever of 102.8 and shivering. IV abx are infusing per orders.
[2019-08-01 00:27] VITALS: BP 145/87
[2019-08-01 06:17] VITALS: BP 129/89
[2019-08-01] MEDS: CEFEPIME HCL 2 G in IV DEXTROSE 5% 100 ML IV SCH ×2 (06:23→14:55)
[2019-08-01 06:27] LABS: BILIRUBIN,TOTAL 0.6 mg/dL (0.2-1.0); CREATININE 1.1 mg/dL (0.6-1.3); MAGNESIUM 1.7 mg/dL (1.8-2.4); POTASSIUM 3.3 mmol/L (3.5-5.1); TOTAL PROTEIN, SERUM 7.7 g/dL (6.4-8.2)
[2019-08-01 06:38] LABS: BASOPHILS % (AUTO) 0.2 % (0.0-2.0); HEMATOCRIT 44.7 % (36.7-47.1); HEMOGLOBIN 15.3 g/dL (12.5-16.3); LYMPHOCYTES # (AUTO) 1.1 K/uL (20.0-40.0); LYMPHOCYTES % (AUTO) 28.5 % (20.5-51.5); MEAN CORPUSCULAR HEMOGLOBIN 30.8 uug (23.8-33.4); MEAN CORPUSCULAR HGB CONC 34 g/dL (32.5-36.3); MEAN CORPUSCULAR VOLUME 89.9 fL (73.0-96.2); MONOCYTES # (AUTO) 0.7 K/uL (2.0-10.0); MONOCYTES % (AUTO) 17.1 % (0.0-11.0); NEUTROPHILS # (AUTO) 2.2 K/uL (1.8-8.9); NEUTROPHILS % (AUTO) 54.2 % (38.5-71.5); PLATELET COUNT (AUTO) 103 K/uL (152-348); RED BLOOD CELL COUNT(AUTO) 4.98 MIL/uL (4.06-5.63)
[2019-08-01 07:41] LABS: BAND % (MANUAL) 3 % (0-10); LYMPHOCYTES % (MANUAL) 29 % (20-40); MONOCYTES % (MANUAL) 16 % (2-10); NEUTROPHILS % (MANUAL) 52 % (42-75)
--- NOTE | 2019-08-01 08:00 | NUR ---
Pt thai speaking. Alert x 1. seizure precaution implemented. KCI bed awaiting for skin protection. Call light is within reach.
[2019-08-01] MEDS: HYDROXYCHLOROQUINE SULFATE 200 MG TABLET PO SCH ×2 (08:51→17:20)
[2019-08-01] MEDS: ZINC SULFATE 220 MG CAPSULE PO SCH (08:52)
[2019-08-01] MEDS: FAMOTIDINE 20 MG TABLET PO SCH (08:52)
[2019-08-01] MEDS: METFORMIN HCL 500 MG TABLET PO SCH ×2 (08:52→17:22)
[2019-08-01] MEDS: levETIRAcetam 500 MG TABLET PO SCH ×2 (08:52→20:00)
[2019-08-01] MEDS ORDERED: MAGNESIUM OXIDE 400 MG TABLET PO ONE (09:45)
[2019-08-01] MEDS ORDERED: POTASSIUM CHLORIDE 20 MEQ TAB.PRT.SR PO ONE (09:45)
[2019-08-01] MEDS: ACETAMINOPHEN 325 MG TABLET PO PRN ×2 (14:52→22:51)
[2019-08-01 14:54] VITALS: BP 132/68
--- NOTE | 2019-08-01 15:30 | NUR ---
Notified Dr tucker pt elevated temp of 101. Tylenol given. o2 sat was 96 % on R/a. No sob noted. No new orders received. BNP result of 85 given.
[2019-08-01 16:00] VITALS: BP 112/76
--- NOTE | 2019-08-01 16:00 | NUR ---
Pt reassessed pt o2 sat of 94% put pt on 1 liter with sat of 97%. Will follow up on temperature. Cooling measures done.
--- NOTE | 2019-08-01 17:30 | NUR ---
Temp 98.3 cooling measures and Tylenol effective. Pt on continuous pulse ox monitored.
--- NOTE | 2019-08-01 19:30 | NUR ---
RECEIVED PT AWAKE, ALERT AND ORIENTEDX3. PT IN NO ACUTE DISTRESS. PT AFEBRILE. SAFETY AND COMFORT PROVIDED. WILL CONTINUE TO MONITOR.
[2019-08-01 20:00] VITALS: BP 108/70
[2019-08-01] MEDS: ATORVASTATIN 20 MG TABLET PO SCH (20:00)
[2019-08-01] MEDS: AZITHROMYCIN IV 500 MG in IV DEXTROSE 5% 250 ML IV SCH (20:00)
[2019-08-01] MEDS ORDERED: MEROPENEM 500 MG VIAL IV ONE ×2 (20:43→23:02)
[2019-08-01] MEDS ORDERED: MEROPENEM 0.5 G in IV NORMAL SALINE 50 ML IV SCH (22:00)
[2019-08-01 23:59] VITALS: BP 125/78
[2019-08-02] VITALS (15 sets, daily range): BP systolic 95–123; BP diastolic 59–75
--- NOTE | 2019-08-02 00:27 | NUR ---
DR RONIT CACERES ORDERED MIDLINE INSERTION FOR PT IN 322. PT IN NO ACUTE DISTRESS. WILL CONTINUE TO MONITOR.
[2019-08-02] MEDS: MEROPENEM 0.5 G in IV NORMAL SALINE 50 ML IV SCH ×4 (01:21→22:04)
--- NOTE | 2019-08-02 06:30 | NUR ---
PT IN NO ACUTE DISTRESS. IV INTACT. PT AFEBRILE. PRESCRIBED MEDICATION GIVEN AND PT TOLERATED IT WELL. SAFETY AND COMFORT PROVIDED. WILL ENDORSE TO INCOMING NURSE FOR CONTINUITY OF CARE.
[2019-08-02 06:35] LABS: POTASSIUM 3.5 mmol/L (3.5-5.1)
[2019-08-02] MEDS: HYDROXYCHLOROQUINE SULFATE 200 MG TABLET PO SCH ×2 (09:13→17:07)
[2019-08-02] MEDS: METFORMIN HCL 500 MG TABLET PO SCH ×2 (09:13→17:07)
[2019-08-02] MEDS: ZINC SULFATE 220 MG CAPSULE PO SCH (09:14)
[2019-08-02] MEDS: levETIRAcetam 500 MG TABLET PO SCH ×2 (09:14→20:26)
[2019-08-02] MEDS: FAMOTIDINE 20 MG TABLET PO SCH (09:14)
--- NOTE | 2019-08-02 10:15 | NUR ---
PATIENT TRANSFERRED FROM TELEMETRY TO ICU IN STABLE CONDITION; MEDICATIONS GIVEN ; PATIENT WITH STABLE VITAL SIGNS AND NO SIGNS OF DISTRESS; REPORT GIVEN TO JIN BALL.
--- NOTE | 2019-08-02 10:28 | NUR ---
RECEIVED PATIENT FROM TELEMETRY FLOOR. RECEIVED REPORT FROM LEONOR ABDI. PATIENT A&O X1-2, PATIENT CONFUSED. MIDLINE PLACE IN LEFT UPPER ARM. PATIENT IN SR, LUNG SOUNDS CLEAR PATIENT NOT IN ANY RESPIRATORY DISTRESS. BECKHAM IN PLACE. BED PLACED IN LOWEST POSITION, SIDE RAILS UP X3, BED ALARM ON, CALL LIGHT WITHIN REACH. WILL CONTINUE TO MONITOR.
--- NOTE | 2019-08-02 13:00 | NUR ---
ATTENDING MD DR. ESPINOZA IN THE UNIT. FULL REPORT GIVEN TO DR. ESPINOZA , SEE RODER HISTORY FOR NEW ORDERS.
[2019-08-02] MEDS: ACETAMINOPHEN 325 MG TABLET PO PRN (17:07)
[2019-08-02] MEDS: ATORVASTATIN 20 MG TABLET PO SCH (20:26)
[2019-08-02] MEDS: AZITHROMYCIN IV 500 MG in IV DEXTROSE 5% 250 ML IV SCH (22:03)
[2019-08-03] VITALS (23 sets, daily range): BP systolic 85–113; BP diastolic 52–77
[2019-08-03] MEDS: ACETAMINOPHEN 325 MG TABLET PO PRN ×2 (05:18→21:03)
[2019-08-03 05:57] LABS: BASOPHILS % (AUTO) 0.2 % (0.0-2.0); EOSINOPHILS % (AUTO) 0.1 % (0.0-7.0); HEMATOCRIT 43.2 % (36.7-47.1); HEMOGLOBIN 14.6 g/dL (12.5-16.3); LYMPHOCYTES # (AUTO) 1.2 K/uL (20.0-40.0); LYMPHOCYTES % (AUTO) 32.5 % (20.5-51.5); MEAN CORPUSCULAR HEMOGLOBIN 30.3 uug (23.8-33.4); MEAN CORPUSCULAR HGB CONC 34 g/dL (32.5-36.3); MEAN CORPUSCULAR VOLUME 89.5 fL (73.0-96.2); MONOCYTES # (AUTO) 0.4 K/uL (2.0-10.0); MONOCYTES % (AUTO) 9.8 % (0.0-11.0); NEUTROPHILS # (AUTO) 2.2 K/uL (1.8-8.9); NEUTROPHILS % (AUTO) 57.4 % (38.5-71.5); PLATELET COUNT (AUTO) 83 K/uL (152-348); RED BLOOD CELL COUNT(AUTO) 4.83 MIL/uL (4.06-5.63); WHITE BLOOD COUNT (AUTO) 3.8 K/uL (3.6-10.2)
[2019-08-03] MEDS: MEROPENEM 0.5 G in IV NORMAL SALINE 50 ML IV SCH ×3 (06:22→21:13)
[2019-08-03 06:27] LABS: MAGNESIUM 1.7 mg/dL (1.8-2.4); PHOSPHOROUS 2.6 mg/dL (2.5-4.9); POTASSIUM 3.7 mmol/L (3.5-5.1)
[2019-08-03 07:55] LABS: BAND % (MANUAL) 3 % (0-10); EOSINOPHILS % (MANUAL) 2 % (0-8); LYMPHOCYTES % (MANUAL) 32 % (20-40); MONOCYTES % (MANUAL) 9 % (2-10); NEUTROPHILS % (MANUAL) 54 % (42-75)
--- NOTE | 2019-08-03 08:00 | NUR ---
RT MORNING EKG WAS DONE BY RT CHANEY. NO MORNING ABG WAS ORDER.
[2019-08-03] MEDS: METFORMIN HCL 500 MG TABLET PO SCH ×2 (08:43→18:00)
[2019-08-03] MEDS: ZINC SULFATE 220 MG CAPSULE PO SCH (08:44)
[2019-08-03] MEDS: FAMOTIDINE 20 MG TABLET PO SCH (08:44)
[2019-08-03] MEDS: levETIRAcetam 500 MG TABLET PO SCH ×2 (08:44→20:52)
[2019-08-03] MEDS: HYDROXYCHLOROQUINE SULFATE 200 MG TABLET PO SCH ×2 (08:45→18:00)
[2019-08-03] MEDS ORDERED: MAGNESIUM SULFATE/D5W 100 ML IV SCH ×2 (09:30→10:46)
--- NOTE | 2019-08-03 10:00 | NUR ---
PULMONARY SERVICES DR. BENTON IN THE UNIT, FULL REPORT GIVEN TO DR. BENTON SEE ORDER HISTORY FOR NEW ORDERS. DR. BENTON AT BEDSIDE ASSESSING PATIENT.
--- NOTE | 2019-08-03 15:00 | NUR ---
CARDIOLOGY SERVICES DR. LEVI IN THE UNIT, FULL REPORT GIVEN TO DR. SIMEON, SEE ORDER HISTORY FOR NEW ORDERS.
--- NOTE | 2019-08-03 18:00 | NUR ---
ATTENDING DR. HARDY IN THE UNIT. FULL REPORT GIVEN TO DR. HARDY, SEE ORDER HISTORY FOR NEW ORDERS.
--- NOTE | 2019-08-03 20:00 | NUR ---
ROUNDS MADE PATIENT IN BED OPEN EYES TO NAME ,ALERT X1,OTHERWISE DISORIENTED ,MOVED UPPER BILATERAL ARMS INDEPENDENTLY LOWER BILATERAL EXTREMITIES WEAK .ON ROOM AIR SATURATION 95% RR25 TO 28, WITH OCCASIONAL DRY COUGH ,SR ON THE HEART MONITOR 81. F/C TO BSD WITH YELLOWISH URINE , LEFT UPPER ARM MIDLINE IVF INFUSING . NO S/S/ OF PAIN PATIENT ON AND OFF ASLEEP BUT EASILY AROUSABLE .
[2019-08-03] MEDS: AZITHROMYCIN IV 500 MG in IV DEXTROSE 5% 250 ML IV SCH (20:50)
--- NOTE | 2019-08-03 20:52 | NUR ---
DUE MEDS GIVEN CRUSHED PILL AND GIVEN WITH APPLESAUCE PATIENT TOLERATED MEDS . HOB UP AND ASPIRATION PRECAUTION OBSERVED.
[2019-08-03] MEDS: ATORVASTATIN 20 MG TABLET PO SCH (20:54)
--- NOTE | 2019-08-03 21:00 | NUR ---
WITH STANDING ORDERS FOR TEMP BY KERRI MCBRIDE,SEE ORDERS .
--- NOTE | 2019-08-03 21:03 | NUR ---
F/S DONE AND 130 RESULTS .
--- NOTE | 2019-08-03 21:20 | NUR ---
B/C X2 15 MINUTES APART . PATIENT TEMP 102.1 F AXILLARY .
--- NOTE | 2019-08-03 21:40 | NUR ---
URINE COLLECTED AND SEND TO LAB FOR UA AND C AND S.
[2019-08-04] VITALS (8 sets, daily range): BP systolic 98–121; BP diastolic 64–83
[2019-08-04] MEDS: MEROPENEM 0.5 G in IV NORMAL SALINE 50 ML IV SCH ×3 (05:35→23:21)
[2019-08-04 05:37] LABS: BASOPHILS % (AUTO) 0.1 % (0.0-2.0); EOSINOPHILS % (AUTO) 0.1 % (0.0-7.0); HEMATOCRIT 42.7 % (36.7-47.1); HEMOGLOBIN 14.6 g/dL (12.5-16.3); LYMPHOCYTES # (AUTO) 1.4 K/uL (20.0-40.0); LYMPHOCYTES % (AUTO) 33.3 % (20.5-51.5); MEAN CORPUSCULAR HEMOGLOBIN 30.5 uug (23.8-33.4); MEAN CORPUSCULAR HGB CONC 34 g/dL (32.5-36.3); MEAN CORPUSCULAR VOLUME 89.4 fL (73.0-96.2); MONOCYTES # (AUTO) 0.4 K/uL (2.0-10.0); MONOCYTES % (AUTO) 10.6 % (0.0-11.0); NEUTROPHILS # (AUTO) 2.3 K/uL (1.8-8.9); NEUTROPHILS % (AUTO) 55.9 % (38.5-71.5); PLATELET COUNT (AUTO) 78 K/uL (152-348); RED BLOOD CELL COUNT(AUTO) 4.78 MIL/uL (4.06-5.63); WHITE BLOOD COUNT (AUTO) 4.1 K/uL (3.6-10.2)
[2019-08-04 05:42] LABS: CREATININE 0.9 mg/dL (0.6-1.3); PHOSPHOROUS 3.5 mg/dL (2.5-4.9); POTASSIUM 3.7 mmol/L (3.5-5.1)
--- NOTE | 2019-08-04 07:30 | NUR ---
RECIEVED PT LYING IN BED SOUND ASLEEP. NO APPARENT RESPIRATORY DISTRESS NOTED. EASILY AROUSABLE , OPENS EYS BUT NON VERBA. SR ON THE MONITOR. O2SAT IS 98% ON RA. TEMP 99F AXILLARY.
[2019-08-04 07:59] LABS: NEUTROPHILS % (MANUAL) 61 % (42-75)
[2019-08-04 08:00] LABS: EOSINOPHILS % (MANUAL) 2 % (0-8); LYMPHOCYTES % (MANUAL) 29 % (20-40); MONOCYTES % (MANUAL) 8 % (2-10)
[2019-08-04] MEDS: levETIRAcetam 500 MG TABLET PO SCH ×2 (08:21→23:17)
[2019-08-04] MEDS: HYDROXYCHLOROQUINE SULFATE 200 MG TABLET PO SCH ×2 (08:21→17:31)
[2019-08-04] MEDS: METFORMIN HCL 500 MG TABLET PO SCH ×2 (08:21→17:31)
[2019-08-04] MEDS: FAMOTIDINE 20 MG TABLET PO SCH (08:21)
[2019-08-04] MEDS: ZINC SULFATE 220 MG CAPSULE PO SCH (08:22)
--- NOTE | 2019-08-04 09:00 | NUR ---
SEEN AND EXAMINED BY DR BENTON WITH NEW ORDERS.
--- NOTE | 2019-08-04 10:30 | NUR ---
PT ATE 100% OF HIS BREAKFAST. SWALLOWING WELL.
--- NOTE | 2019-08-04 15:00 | NUR ---
PT TRANSFFERED TO RM 322 VIA BED USING PROPER ISOLATION TECHNIQUE. CONDITION IS UNCHANGED.
--- NOTE | 2019-08-04 20:00 | NUR ---
Patient received into care laying in bed, resting comfortably. Patient is alert/oriented x1 and has no s/s of acute distress/discomfort noted or observed by nurse. All safety, fall, seizure, and isolation precautions are in place. Call light and personal items are within reach at all times. Will continue to monitor and assess.
[2019-08-04] MEDS: ATORVASTATIN 20 MG TABLET PO SCH (23:17)
[2019-08-04] MEDS: AZITHROMYCIN IV 500 MG in IV DEXTROSE 5% 250 ML IV SCH (23:18)
[2019-08-05 00:12] VITALS: BP 120/74
[2019-08-05 04:12] VITALS: BP 117/71
[2019-08-05] MEDS: ACETAMINOPHEN 325 MG TABLET PO PRN (04:44)
[2019-08-05] MEDS: MEROPENEM 0.5 G in IV NORMAL SALINE 50 ML IV SCH ×3 (05:11→21:00)
--- NOTE | 2019-08-05 06:00 | NUR ---
PATIENT SLEPT INTERMITTENTLY THROUGHOUT NIGHT WITH NO S/S OF ACUTE DISTRESS/DISCOMFORT NOTED/OBSERVED BY NURSE. INCREASED ORAL TEMPERATURE WAS ADDRESSED WITH COOLING MEASURES AND PRESCRIBED ACETAMINOPHEN. ALL NURSING NEEDS WERE MET AND PATIENT IS WARM, DRY, AND COMFORTABLE. ALL SAFETY, FALL, AND ISOLATION PRECAUTIONS REMAIN IN PLACE. CALL LIGHT AND PERSONAL ITEMS REMAIN WITHIN REACH AT ALL TIMES.
--- NOTE | 2019-08-05 08:00 | NUR ---
Received patient in bed, awake and responsive. No signs of distress noted. No SOB. On Oxygen at 2LPM, saturating 95%. No complain of Pain or discomfort. On contact and droplet Precaution for (+) covid 19, Proper PPE strictly Observed. kept the call light within easy reach. Kept clean and comfortable Will continue to monitor.
[2019-08-05] MEDS: METFORMIN HCL 500 MG TABLET PO SCH ×2 (08:23→17:00)
[2019-08-05] MEDS: HYDROXYCHLOROQUINE SULFATE 200 MG TABLET PO SCH (08:23)
[2019-08-05] MEDS: ZINC SULFATE 220 MG CAPSULE PO SCH (08:23)
[2019-08-05] MEDS: levETIRAcetam 500 MG TABLET PO SCH ×2 (08:23→21:00)
[2019-08-05] MEDS: FAMOTIDINE 20 MG TABLET PO SCH (08:26)
[2019-08-05 09:12] LABS: BASOPHILS % (AUTO) 0.3 % (0.0-2.0); EOSINOPHILS % (AUTO) 0.1 % (0.0-7.0); HEMATOCRIT 45.2 % (36.7-47.1); HEMOGLOBIN 15.2 g/dL (12.5-16.3); LYMPHOCYTES # (AUTO) 1.5 K/uL (20.0-40.0); LYMPHOCYTES % (AUTO) 36.5 % (20.5-51.5); MEAN CORPUSCULAR HEMOGLOBIN 30.4 uug (23.8-33.4); MEAN CORPUSCULAR HGB CONC 34 g/dL (32.5-36.3); MEAN CORPUSCULAR VOLUME 90.4 fL (73.0-96.2); MONOCYTES # (AUTO) 0.5 K/uL (2.0-10.0); MONOCYTES % (AUTO) 11.3 % (0.0-11.0); NEUTROPHILS # (AUTO) 2.2 K/uL (1.8-8.9); NEUTROPHILS % (AUTO) 51.8 % (38.5-71.5); PLATELET COUNT (AUTO) 73 K/uL (152-348); WHITE BLOOD COUNT (AUTO) 4.2 K/uL (3.6-10.2)
[2019-08-05 09:24] LABS: CREATININE 0.9 mg/dL (0.6-1.3); MAGNESIUM 2.1 mg/dL (1.8-2.4); PHOSPHOROUS 3.9 mg/dL (2.5-4.9); POTASSIUM 3.8 mmol/L (3.5-5.1)
[2019-08-05 12:00] VITALS: BP 116/72
[2019-08-05 12:01] LABS: BAND % (MANUAL) 3 % (0-10); LYMPHOCYTES % (MANUAL) 27 % (20-40); MONOCYTES % (MANUAL) 11 % (2-10); NEUTROPHILS % (MANUAL) 59 % (42-75)
[2019-08-05 16:00] VITALS: BP 107/71
--- NOTE | 2019-08-05 18:17 | NUR ---
patient in bed, awake No signs of distress noted. On 2L nasal cannula, saturating 95%. No complain of Pain or discomfort. Afebrile. remains of Contact and droplet isolation for positive covid 19, Proper PPE strictly Observed. Kept clean and comfortable. kept the call light within easy reach. Will endorse to Oncoming Nurse.
--- NOTE | 2019-08-05 19:20 | NUR ---
Received patient lying in bed. Awake, non-verbal, nods her yes or no when asked simple question. In no acute distress. O2 at 2LPM via NC in place. O2 sat at 95%. No coughing observed at this time. NSR on tele at 94/min. VS WNL. Left upper arm midline intact and patent. Left FA IV site intact and patent. Izquierdo catheter intact. Contact and droplet precaution observed. Safety measure initiated and call jenkins within reach.
[2019-08-05 20:03] VITALS: BP 121/68
[2019-08-05] MEDS: ATORVASTATIN 20 MG TABLET PO SCH (21:00)
[2019-08-06 00:03] VITALS: BP 110/68
[2019-08-06] MEDS: ACETAMINOPHEN 325 MG TABLET PO PRN ×2 (00:37→23:40)
[2019-08-06 04:03] VITALS: BP 124/72
[2019-08-06] MEDS: MEROPENEM 0.5 G in IV NORMAL SALINE 50 ML IV SCH ×2 (05:36→13:27)
--- NOTE | 2019-08-06 08:10 | NUR ---
Received patient in bed, Non verbal. No signs of distress noted. No SOB. Saturating 95% on 2L, No signs of Pain or discomfort. Afebrile with temperature of 98.3F, Remains on contact and droplet Isolation for positive covid 19, Proper PPE strictly Observed. Izquierdo catheter intact and patent draining clear yellow urine. Izquierdo catheter care provided. Kept clean and comfortable. Will continue to monitor.
[2019-08-06] MEDS: METFORMIN HCL 500 MG TABLET PO SCH ×2 (08:14→17:01)
[2019-08-06] MEDS: levETIRAcetam 500 MG TABLET PO SCH ×2 (08:14→20:44)
[2019-08-06] MEDS: ZINC SULFATE 220 MG CAPSULE PO SCH (08:14)
[2019-08-06] MEDS: FAMOTIDINE 20 MG TABLET PO SCH (08:14)
[2019-08-06 09:58] VITALS: BP 120/66
[2019-08-06 12:04] VITALS: BP 115/70
[2019-08-06 16:32] VITALS: BP 115/73
--- NOTE | 2019-08-06 18:44 | NUR ---
Patient in bed, awake, Non verbal. No signs of distress noted. No SOB, saturating 95% on 2L. No signs of Pain or discomfort. Afebrile. Remains on Contact and droplet Isolation for positive covid 19. Izquierdo catheter draining with clear yellow urine. All due medications given as ordered. Kept clean and comfortable. Will endorse to Oncoming Nurse.
--- NOTE | 2019-08-06 19:20 | NUR ---
Received patient lying in bed. Awake, alert, Khmer speaking only. In no acute distress. O2 at 2LPM via NC in place. NSR on tele at 97/min. Left upper arm midline intact and patent. Left FA IV site intact and patent. Izquierdo catheter intact. Contact and droplet precaution observed. Safety measure initiated and call jenkins within reach.
[2019-08-06 19:30] VITALS: BP 113/73
[2019-08-07] VITALS (7 sets, daily range): BP systolic 90–136; BP diastolic 48–78
--- NOTE | 2019-08-07 05:45 | NUR ---
EKG done at bedside.
--- NOTE | 2019-08-07 06:19 | NUR ---
AOx1. Afebrile at this time. In no acute distress. O2 at 2LPM via NC in place. O2 sat at 98%. NSR on tele at 83/min. Left upper arm midline remains intact and patent. Left FA IV site remains intact and patent. Izquierdo catheter intact and draining via gravity. Contact and droplet precaution maintained. Safety measure maintained and call jenkins within reach.
[2019-08-07] MEDS: ACETAMINOPHEN 325 MG TABLET PO PRN (06:50)
[2019-08-07] MEDS: METFORMIN HCL 500 MG TABLET PO SCH ×2 (08:16→16:59)
[2019-08-07] MEDS: levETIRAcetam 500 MG TABLET PO SCH ×2 (08:16→21:12)
[2019-08-07] MEDS: FAMOTIDINE 20 MG TABLET PO SCH (08:16)
[2019-08-07] MEDS: ZINC SULFATE 220 MG CAPSULE PO SCH (08:16)
--- NOTE | 2019-08-07 08:53 | NUR ---
patient has difficulty swallowing. Patient does not follow commands. coughs with drinks. high risk for aspiration. will notify doctor and repeat swallow evaluation.
--- NOTE | 2019-08-07 10:00 | NUR ---
DOCTOR BENTON IN THE UNIT. UPDATED LABS ARE ALSO PENDING ON THIS PATIENT. LABS WERE JUST DRAWN AND GIVEN TO ARABIC LINGUIST. PATIENT VERY DIFFICULT TO SWALLOW IS COUGHING WITH THIN LIQUIDS.
[2019-08-07 10:10] LABS: BASOPHILS % (AUTO) 0.1 % (0.0-2.0); HEMATOCRIT 42.5 % (36.7-47.1); HEMOGLOBIN 14.3 g/dL (12.5-16.3); LYMPHOCYTES # (AUTO) 0.9 K/uL (20.0-40.0); LYMPHOCYTES % (AUTO) 18.2 % (20.5-51.5); MEAN CORPUSCULAR HEMOGLOBIN 30.5 uug (23.8-33.4); MEAN CORPUSCULAR HGB CONC 34 g/dL (32.5-36.3); MEAN CORPUSCULAR VOLUME 90.9 fL (73.0-96.2); MONOCYTES # (AUTO) 0.3 K/uL (2.0-10.0); MONOCYTES % (AUTO) 6.2 % (0.0-11.0); NEUTROPHILS # (AUTO) 3.7 K/uL (1.8-8.9); NEUTROPHILS % (AUTO) 75.5 % (38.5-71.5); PLATELET COUNT (AUTO) 107 K/uL (152-348); RED BLOOD CELL COUNT(AUTO) 4.68 MIL/uL (4.06-5.63); WHITE BLOOD COUNT (AUTO) 4.8 K/uL (3.6-10.2)
[2019-08-07 11:08] LABS: CREATININE 0.8 mg/dL (0.6-1.3); MAGNESIUM 2.3 mg/dL (1.8-2.4); PHOSPHOROUS 3.8 mg/dL (2.5-4.9); POTASSIUM 3.3 mmol/L (3.5-5.1)
--- NOTE | 2019-08-07 16:00 | NUR ---
PLACE NGT AND GIVE 40 MEQ OF POTASSIUM
--- NOTE | 2019-08-07 16:00 | NUR ---
UPDATED DR VEE ON PATIENT NO SIGNIFICANT CHANGES OTHER THAN NGT PLACEMENT PER DR. LYLE. NO FEVER REPORTED
[2019-08-07] MEDS ORDERED: POTASSIUM CHLORIDE 20 MEQ POWDER PACKET GT ONE (16:30)
--- NOTE | 2019-08-07 20:00 | NUR ---
Received patient awake in bed, no acute distress noted. NGT in right nares on tube feeding at 30ml/hr, checked residual and is 10cc, tolerating well. Midline on the left upper arm is intact and patent, left forearm peripheral IV is intact. Izquierdo catheter intact, draining well. Vitals WNL no fevers noted. Rechecked BP and was 125/75. Seizure precautions observed. On contact/droplet isolation for positive COVID19. Safety measures initiated. Bed is low and locked, call light within reach.
[2019-08-08] VITALS: BP 116/81
[2019-08-08 04:00] VITALS: BP 115/76
--- NOTE | 2019-08-08 06:08 | NUR ---
Patient slept intermittently. No distress noted. Remained SR on monitor. Vitals WNL. No fevers noted. Tolerating feeding well. Residual is 5cc. Will endorse to next shift.
[2019-08-08 06:29] LABS: HEMATOCRIT 43.9 % (36.7-47.1); HEMOGLOBIN 14.5 g/dL (12.5-16.3); LYMPHOCYTES # (AUTO) 1.1 K/uL (20.0-40.0); LYMPHOCYTES % (AUTO) 17.1 % (20.5-51.5); MEAN CORPUSCULAR HEMOGLOBIN 30.1 uug (23.8-33.4); MEAN CORPUSCULAR HGB CONC 33 g/dL (32.5-36.3); MEAN CORPUSCULAR VOLUME 90.9 fL (73.0-96.2); MONOCYTES # (AUTO) 0.4 K/uL (2.0-10.0); MONOCYTES % (AUTO) 6.4 % (0.0-11.0); NEUTROPHILS # (AUTO) 4.8 K/uL (1.8-8.9); NEUTROPHILS % (AUTO) 76.5 % (38.5-71.5); PLATELET COUNT (AUTO) 131 K/uL (152-348); RED BLOOD CELL COUNT(AUTO) 4.83 MIL/uL (4.06-5.63); WHITE BLOOD COUNT (AUTO) 6.3 K/uL (3.6-10.2)
[2019-08-08 06:33] LABS: CREATININE 0.9 mg/dL (0.6-1.3); MAGNESIUM 2.3 mg/dL (1.8-2.4); PHOSPHOROUS 3.4 mg/dL (2.5-4.9); POTASSIUM 3.4 mmol/L (3.5-5.1)
--- NOTE | 2019-08-08 07:30 | NUR ---
Received patient awake in bed with no acute distress and no c/o pain noted. NGT in right nares on tube feeding at 30ml/hr, Midline on the left upper arm left forearm IV is intact and patent, Vitals WNL no fevers noted. Seizure precautions observed. On contact/droplet isolation for positive COVID19. call light within reach. will continue to monitor.
[2019-08-08] MEDS: levETIRAcetam 500 MG TABLET PO SCH ×2 (08:51→21:14)
[2019-08-08] MEDS: FAMOTIDINE 20 MG TABLET PO SCH (08:51)
[2019-08-08] MEDS: ZINC SULFATE 220 MG CAPSULE PO SCH (08:51)
[2019-08-08] MEDS: METFORMIN HCL 500 MG TABLET PO SCH ×2 (08:51→17:13)
[2019-08-08] MEDS: ACETAMINOPHEN 325 MG TABLET PO PRN (09:26)
[2019-08-08 12:00] VITALS: BP 122/75
[2019-08-08] MEDS ORDERED: POTASSIUM CHLORIDE 20 MEQ TAB.PRT.SR PO ONE (12:15)
[2019-08-08 16:00] VITALS: BP 127/78
--- NOTE | 2019-08-08 17:56 | NUR ---
Patient on droplet/contact isolation for COVID 19. Patient in bed with HOB elevated, awake and verbally responsive No signs of distress noted. No c/o pain or discomfort. Afebrile. patient on NGT in the right nares on tube feeding at 30ml /hr with Glucerna 1.2 . Kept clean and comfortable. Izquierdo catheter draining. will continue to monitor.
[2019-08-08 21:39] VITALS: BP 129/84
[2019-08-09 01:02] VITALS: BP 121/87
--- NOTE | 2019-08-09 04:55 | NUR ---
Patient slept intermittently throughout the night. No acute respiratory distress noted. Afebrile. Droplet/contact precautions maintained. NGT in situ to right nare infusing continuous tube feeding at 30 ml/hr with Glucerna 1.2. Pt had 1 episode of BM on shift. Pt repositioned throughout the night. Will continue to monitor.
[2019-08-09 05:20] VITALS: BP 124/82
[2019-08-09] MEDS: GLUCERNA 1.2 1000ML LIQUID GT PRN (06:21)
[2019-08-09] MEDS: METFORMIN HCL 500 MG TABLET PO SCH ×2 (08:42→18:12)
[2019-08-09] MEDS: FAMOTIDINE 20 MG TABLET PO SCH (08:42)
[2019-08-09] MEDS: ZINC SULFATE 220 MG CAPSULE PO SCH (08:42)
[2019-08-09] MEDS: levETIRAcetam 500 MG TABLET PO SCH ×2 (08:42→20:18)
[2019-08-09 11:30] VITALS: BP 126/78
[2019-08-09] MEDS: ACETAMINOPHEN 325 MG TABLET PO PRN ×2 (12:19→21:04)
[2019-08-09 16:00] VITALS: BP 110/74
--- NOTE | 2019-08-09 19:27 | NUR ---
Patient on droplet/contact isolation for COVID 19. Patient in bed with HOB elevated , awake and verbally responsive .No signs of distress noted and on Oxygen at 2Lpm. No c/o pain or discomfort. Afebrile. Kept clean and comfortable. will continue to monitor.
--- NOTE | 2019-08-09 20:00 | NUR ---
RECEIVED PATIENT AWAKE IN BED. ALERT TO SELF ONLY, UZBEK SPEAKING ONLY. CONFUSED AND DISORIENTED. BILATERAL WRIST RESTRAINTS ON PER MD ORDER. PATIENT TRIES TO PULL OUT F/C AND IV. F/C INTACT AND PATENT. ON O2 1L NC SATING 93-94%. ON TELE A-FIB CONTROLLED. VSS. ON AIR MATTRESS. PATIENT ON ISOLATION DROPLET/CONTACT FOR COVID. BED ALARM ON. CALL LIGHT IN REACH. ALL NEEDS ATTENDED. WILL CONTINUE TO MONITOR AND ASSESS. Addendum: 08/10/19 at 0208 by JOSE HORAN LVN PLEASE DISREGARD. INCORRECT PATIENT.
--- NOTE | 2019-08-09 20:01 | NUR ---
PLEASE DISREGARD PREVIOUS NOTE. ERROR WRONG PATIENT.
[2019-08-09 20:45] VITALS: BP 119/76
--- NOTE | 2019-08-09 20:45 | NUR ---
PATIENT AWAKE IN BED. ALERT TO SELF ONLY, BUT FOLLOWS SIMPLE INSTRUCTIONS. ON ISOLATION FOR DROPLET/CONTACT FOR COVID. TEMPERATURE NOTED ORALLY, 102.9, HR 120, RESPIRATIONS 26. ON O2 2L NC SATING 95%. ON TELE ST. MID-LINE NOTED TO LEFT UPPER ARM, INTACT. TUBE FEEDING NOTED TO RIGHT NARES, INFUSING WELL. HOB ELEVATED. F/C INTACT AND PATENT. ALL NEEDS ATTENDED. WILL CONTINUE TO MONITOR AND ASSESS.
--- NOTE | 2019-08-09 21:00 | NUR ---
PATIENT GIVEN TYLENOL 650MG PER NGT AND COOLING MEASURES APPLIED. WILL CONTINUE TO MONITOR AND ASSESS.
[2019-08-09] MEDS: CEFEPIME HCL 1 G in IV DEXTROSE 5% 50 ML IV SCH (21:31)
--- NOTE | 2019-08-09 22:00 | NUR ---
RECHECKED PATIENTS TEMPERATURE 99.2, TRENDING DOWN, HEART RATE 105. WILL CONTINUE TO MONITOR AND ASSESS.
[2019-08-09] MEDS ORDERED: VANCOMYCIN IV 1,250 MG in IV DEXTROSE 5% 250 ML IV ONE (22:30)
[2019-08-09] MEDS ORDERED: VANCOMYCIN IV 200 ML ONE (23:08)
[2019-08-10] VITALS: BP 116/75
--- NOTE | 2019-08-10 00:30 | NUR ---
PATIENT AFEBRILE AT THIS TIME. ALL NEEDS ATTENDED,
[2019-08-10 04:00] VITALS: BP 117/77
--- NOTE | 2019-08-10 05:00 | NUR ---
PATIENT AWAKE IN BED. TEMPERATURE 103.0 AND HEART RATE 122. PATIENT GIVEN TYLENOL 650MG PRN PER NGT AND COOLING MEASURES APPLIED. WILL CONTINUE TO MONITOR AND RE-ASSESS TEMP. ALL NEEDS ATTENDED.
[2019-08-10] MEDS: ACETAMINOPHEN 325 MG TABLET PO PRN ×2 (05:05→12:51)
[2019-08-10] MEDS: CEFEPIME HCL 1 G in IV DEXTROSE 5% 50 ML IV SCH ×3 (05:57→21:27)
--- NOTE | 2019-08-10 06:19 | NUR ---
PATIENT REPOSITIONED IN BED. RECHECKED TEMPERATURE, TRENDING DOWN 101.0 AND HEART RATE 113. ALL OTHER VS WNL. ALL NEEDS ATTENDED. WILL CONTINUE TO MONITOR AND ASSESS.
[2019-08-10 07:13] LABS: BASOPHILS % (AUTO) 0.1 % (0.0-2.0); HEMATOCRIT 45.4 % (36.7-47.1); HEMOGLOBIN 14.9 g/dL (12.5-16.3); LYMPHOCYTES # (AUTO) 0.8 K/uL (20.0-40.0); LYMPHOCYTES % (AUTO) 7.4 % (20.5-51.5); MEAN CORPUSCULAR HGB CONC 33 g/dL (32.5-36.3); MEAN CORPUSCULAR VOLUME 91.5 fL (73.0-96.2); MONOCYTES # (AUTO) 0.3 K/uL (2.0-10.0); MONOCYTES % (AUTO) 2.3 % (0.0-11.0); NEUTROPHILS # (AUTO) 9.7 K/uL (1.8-8.9); NEUTROPHILS % (AUTO) 90.2 % (38.5-71.5); PLATELET COUNT (AUTO) 152 K/uL (152-348); RED BLOOD CELL COUNT(AUTO) 4.96 MIL/uL (4.06-5.63); WHITE BLOOD COUNT (AUTO) 10.7 K/uL (3.6-10.2)
[2019-08-10 07:29] LABS: CREATININE 1.1 mg/dL (0.6-1.3); MAGNESIUM 2.3 mg/dL (1.8-2.4); POTASSIUM 3.2 mmol/L (3.5-5.1)
[2019-08-10 08:00] VITALS: BP 135/80
[2019-08-10 08:28] LABS: BILIRUBIN,DIRECT 0.2 mg/dL (0.0-0.2); BILIRUBIN,TOTAL 0.8 mg/dL (0.2-1.0); TOTAL PROTEIN, SERUM 7.5 g/dL (6.4-8.2)
[2019-08-10] MEDS: levETIRAcetam 500 MG TABLET PO SCH ×2 (09:01→21:26)
[2019-08-10] MEDS: METFORMIN HCL 500 MG TABLET PO SCH ×2 (09:01→17:34)
[2019-08-10] MEDS: FAMOTIDINE 20 MG TABLET PO SCH (09:01)
[2019-08-10] MEDS: ZINC SULFATE 220 MG CAPSULE PO SCH (09:01)
--- NOTE | 2019-08-10 09:30 | NUR ---
DOCTOR BENTON IN THE UNIT TO SEE PATIENT. UPDATED PATIENT REQUIRES DEEP ORAL SUCTIONING THICK VELÁZQUEZ SECRETIONS. PATIENT IS STILL ABLE TO COUGH UP SOME SECRETIONS.
[2019-08-10] MEDS ORDERED: POTASSIUM CHLORIDE 10 MEQ TAB.PRT.SR PO ONE (10:30)
[2019-08-10] MEDS ORDERED: POTASSIUM CHLORIDE 20 MEQ POWDER PACKET GT ONE (10:45)
[2019-08-10 11:00] VITALS: BP 161/65
--- NOTE | 2019-08-10 12:30 | NUR ---
PATIENT CONTINUES WITH LOW GRADE FEVER 99.3. AND INCREASED HEART RATE UPTO 120'S. ADMINISTER TYLENOL.
[2019-08-10] MEDS: ENOXAPARIN SODIUM 40 MG/0.4 ML DISP.SYRIN SQ SCH (12:52)
[2019-08-10] MEDS: VANCOMYCIN IV 1,000 MG in IV DEXTROSE 5% 250 ML IV SCH (12:53)
--- NOTE | 2019-08-10 13:47 | NUR ---
Clinical pharmacy note-Vancomycin dosing per pharmacy Subjective; To start Vancomycin dosing on this patient for pneumonia with sepsis(Covid +) Objective: BUN 29 Scr 1.1 WBC 10.7 Temp 103 Ht 170.18cm Wt 71.214kg Assessment/Plan: Patient had Vancomycin 1gram last night at 2328 Will continue Vancomycin 1gram IV every 16 hrs (second dose today at 1500) and draw trough by 4th dose(not ordered yet) for expected trough around 15.45. Will monitor daily.
[2019-08-10 16:00] VITALS: BP 161/73
--- NOTE | 2019-08-10 19:30 | NUR ---
Received patient awake. Patient shows no signs or symptoms of distress at this time. O2 saturation is 90% on 2L NC. Sinus tachy - 120s on tele monitor. Will continue to monitor patient.
[2019-08-10 20:30] VITALS: BP 118/76
[2019-08-10] MEDS: GLUCERNA 1.2 1000ML LIQUID GT PRN (22:27)
[2019-08-11] VITALS: BP 105/68
[2019-08-11] MEDS: ACETAMINOPHEN 325 MG TABLET PO PRN ×2 (00:56→09:42)
--- NOTE | 2019-08-11 01:15 | NUR ---
Pt developed 103.0 fever. Tylenol given as per MD order. Cooling measures applied. Will continue to monitor patient.
--- NOTE | 2019-08-11 02:15 | NUR ---
Temperature re-checked and is 99.2. Patient shows no signs or symptoms of distress. Will continue to monitor patient.
[2019-08-11 04:00] VITALS: BP 115/68
[2019-08-11] MEDS: CEFEPIME HCL 1 G in IV DEXTROSE 5% 50 ML IV SCH ×3 (05:01→21:00)
[2019-08-11] MEDS: VANCOMYCIN IV 1,000 MG in IV DEXTROSE 5% 250 ML IV SCH ×2 (06:00→23:39)
--- NOTE | 2019-08-11 06:30 | NUR ---
Patient shows no signs or symptoms Patient is now NSR on monitor. Vital signs stable. Last temperature taken is 98.2. Will endorse patient to day shift nurse in stable condition.
[2019-08-11 07:15] LABS: BASOPHILS % (AUTO) 0.1 % (0.0-2.0); HEMATOCRIT 42.1 % (36.7-47.1); MEAN CORPUSCULAR HEMOGLOBIN 30.5 uug (23.8-33.4); MEAN CORPUSCULAR HGB CONC 33 g/dL (32.5-36.3); MEAN CORPUSCULAR VOLUME 91.4 fL (73.0-96.2); MONOCYTES # (AUTO) 0.3 K/uL (2.0-10.0); NEUTROPHILS # (AUTO) 8.3 K/uL (1.8-8.9); NEUTROPHILS % (AUTO) 86.9 % (38.5-71.5); PLATELET COUNT (AUTO) 147 K/uL (152-348); WHITE BLOOD COUNT (AUTO) 9.6 K/uL (3.6-10.2)
[2019-08-11 07:47] LABS: FERRITIN 1450 ng/mL (26-388); LACTATE DEHYDROGENASE 435 U/L (85-227)
[2019-08-11 08:04] LABS: CREATININE 1.1 mg/dL (0.6-1.3); MAGNESIUM 2.3 mg/dL (1.8-2.4); PHOSPHOROUS 3.6 mg/dL (2.5-4.9); POTASSIUM 3.4 mmol/L (3.5-5.1)
--- NOTE | 2019-08-11 08:44 | NUR ---
Clinical pharmacy note-Vancomycin dosing per pharmacy Subjective; To continue Vancomycin dosing on this patient for pneumonia with sepsis(Covid +) Objective: BUN 32 Scr 1.1 WBC 9.36 Temp 98.2 Ht 170.18cm Wt 71.214kg Assessment/Plan: Will continue same dose of Vancomycin 1gram IV every 16 hrs for today. 3rd dose today at 0600- was scheduled for 0700) and draw trough by 4th dose(ordered for 08/10 at 2230-RN has been informed to hold 2200 dose if vanco trough level above 20 mcg/ml.) Pharmacy will check vanco trough level in am & adjust the dose if needed. Will monitor daily. Addendum: 08/11/19 at 1312 by MAYNOR SORTO ADM LAB REPORTED VANCO TROUGH OF 30 THIS AM AT 0635- PATIENT WAS RECEIVING VANCO DOSE STARTING 0600 LAB [facility] AT INCORRECT TIME OF 0635 INSTEAD OF 2230. IGNORE THIS TROUGH
[2019-08-11] MEDS: FAMOTIDINE 20 MG TABLET PO SCH (09:03)
[2019-08-11] MEDS: levETIRAcetam 500 MG TABLET PO SCH (09:03)
[2019-08-11] MEDS: METFORMIN HCL 500 MG TABLET PO SCH (09:04)
[2019-08-11] MEDS: ZINC SULFATE 220 MG CAPSULE PO SCH (09:04)
[2019-08-11] MEDS: ENOXAPARIN SODIUM 40 MG/0.4 ML DISP.SYRIN SQ SCH (09:23)
--- NOTE | 2019-08-11 10:25 | NUR ---
Received patient in bed awake and alert x1. Patient denies pain and discomfort. No acute distress noted. Bed in lowest position, side rails up x2, call light within reach, will continue to monitor.
[2019-08-11] MEDS: POTASSIUM CHLORIDE 50 ML IV SCH ×2 (11:08→12:04)
[2019-08-11 11:55] VITALS: BP 118/93
[2019-08-11] MEDS: IV 1/2NS 1000 ML 1,000 ML IV PRN (13:10)
[2019-08-11] MEDS: ACETAMINOPHEN 650 MG/20.3 ML LIQUID UDC NG PRN (15:50)
[2019-08-11 16:30] VITALS: BP 109/65
[2019-08-11] MEDS: METFORMIN HCL 500 MG TABLET NG SCH (18:29)
--- NOTE | 2019-08-11 20:00 | NUR ---
Received patient asleep. Patient shows no signs or symptoms of distress at this time. Patient's O2 is 94% on 5L nasal canula. Vital signs stable. No fever at this time. Aspirated 40cc of residual. Tube feeding to be continued. Patient is Normal sinus rhythm 80s at this time. Side rails x2 up. Bed set to lowest position. Will continue to monitor patient.
[2019-08-11 20:47] VITALS: BP 112/71
[2019-08-11] MEDS: levETIRAcetam 500 MG TABLET NG SCH (21:00)
[2019-08-12 00:27] VITALS: BP 122/71
[2019-08-12] MEDS: CEFEPIME HCL 1 G in IV DEXTROSE 5% 50 ML IV SCH ×3 (05:17→22:13)
[2019-08-12 06:05] VITALS: BP 116/81
--- NOTE | 2019-08-12 06:34 | NUR ---
Patient shows no signs or symptoms of distress at this time. Vital signs stable. No fever noted throughout the shift. NSR on tele monitor. Will endorse patient to day shift nurse in stable condition.
[2019-08-12 06:56] LABS: EOSINOPHILS % (AUTO) 0.6 % (0.0-7.0); HEMATOCRIT 39.1 % (36.7-47.1); HEMOGLOBIN 13.3 g/dL (12.5-16.3); LYMPHOCYTES # (AUTO) 0.9 K/uL (20.0-40.0); LYMPHOCYTES % (AUTO) 14.1 % (20.5-51.5); MEAN CORPUSCULAR HEMOGLOBIN 30.7 uug (23.8-33.4); MEAN CORPUSCULAR HGB CONC 34 g/dL (32.5-36.3); MEAN CORPUSCULAR VOLUME 90.5 fL (73.0-96.2); MONOCYTES # (AUTO) 0.3 K/uL (2.0-10.0); MONOCYTES % (AUTO) 4.5 % (0.0-11.0); NEUTROPHILS # (AUTO) 4.9 K/uL (1.8-8.9); NEUTROPHILS % (AUTO) 80.8 % (38.5-71.5); PLATELET COUNT (AUTO) 152 K/uL (152-348); RED BLOOD CELL COUNT(AUTO) 4.32 MIL/uL (4.06-5.63)
[2019-08-12 07:11] LABS: CREATININE 0.8 mg/dL (0.6-1.3); MAGNESIUM 2.1 mg/dL (1.8-2.4); PHOSPHOROUS 3.2 mg/dL (2.5-4.9); POTASSIUM 3.4 mmol/L (3.5-5.1)
[2019-08-12] MEDS: levETIRAcetam 500 MG TABLET NG SCH ×2 (08:08→21:21)
[2019-08-12] MEDS: ZINC SULFATE 220 MG CAPSULE NG SCH (08:08)
[2019-08-12] MEDS: FAMOTIDINE 20 MG TABLET NG SCH (08:08)
[2019-08-12] MEDS: METFORMIN HCL 500 MG TABLET NG SCH ×2 (08:08→18:24)
[2019-08-12] MEDS: ENOXAPARIN SODIUM 40 MG/0.4 ML DISP.SYRIN SQ SCH (08:14)
--- NOTE | 2019-08-12 08:40 | NUR ---
Received pt in bed, comfortable, non-verbal. Pt. only responsive to tactile stimuli. In no acute distress, tolerating 5L of O2 via NC, no SOB and afebrile. All due AM medications given as ordered. No residual for NGT, feeding at 30 cc/hr of Glucerna. Skin care rendered. Oral care rendered. Turned and repositioned pt. q2h and for comfort. F/C secured with statlock with clear/yellow urine output.On contact/droplet/eye precaution for + COVID-19. NSR on monitor. IRISH midline patent, intact with no s/sx of IV complication, remain on 1/2 NS @ 60cc/hr. All pt. needs provided promptly. Safety measures in place. Call light within reach. Will continue to monitor.
--- NOTE | 2019-08-12 09:55 | NUR ---
Clinical pharmacy note-Vancomycin dosing per pharmacy Subjective; To continue Vancomycin dosing on this patient for pneumonia with sepsis(Covid +) Objective: BUN 27 Scr 0.8 WBC 6 Temp 98.6 Vanco trough level on 08/10 at 2230: 6.6 Ht 170.18cm Wt 71.214kg Assessment/Plan: Since vanco trough level is sub-therapeutic, will change dose to Vancomycin 1gram IV every 12 hrs for estimated vanco trough level of 15 mcg/ml at steady state. 2nd dose today at 1100. Plan to order vanco trough level before 4th dose of current regime (ordered for 08/12 at 1030). Pharmacy shall review the level in am & adjust the dose if needed. Will monitor daily.
[2019-08-12] MEDS: VANCOMYCIN IV 1,000 MG in IV DEXTROSE 5% 250 ML IV SCH ×2 (10:54→22:13)
[2019-08-12] MEDS: GLUCERNA 1.2 1000ML LIQUID NG PRN (10:55)
[2019-08-12] MEDS ORDERED: POTASSIUM CHLORIDE 20 MEQ POWDER PACKET NG ONE (11:00)
[2019-08-12 11:33] VITALS: BP 115/77
[2019-08-12] MEDS: IV 1/2NS 1000 ML 1,000 ML IV PRN (13:06)
--- NOTE | 2019-08-12 17:57 | NUR ---
EOS: No significant acute changes during this shift. Pt. remain afebrile, in no distress. Remain on IV fluid 1/2 NS @ 60ml/hr with no s/sx of fluid overload. Tolerating tube feeding via NGT. Pt. titrated to 4LPM via NC with SpO2 of 94-95%. On tele, Sinus tachy 102 bpm. Pt. received all due medications. On ADAMARIS, sin care rendered, mepilex border place in coccyx area for protection. F/C with ishan color urine, no sediment. Remain on contact/droplet/eye protection isolation. Updated family with pt. condition using jerker, no further concerns from family member. Safety measures in place. Will endorsed to oncoming shift accordingly.
[2019-08-12 20:00] VITALS: BP 119/76
[2019-08-12] MEDS: ACETAMINOPHEN 650 MG/20.3 ML LIQUID UDC NG PRN (22:13)
[2019-08-13] VITALS: BP 111/70
[2019-08-13] MEDS: CEFEPIME HCL 1 G in IV DEXTROSE 5% 50 ML IV SCH ×3 (04:27→21:48)
[2019-08-13 04:58] VITALS: BP 120/63
[2019-08-13 05:45] LABS: BASOPHILS % (AUTO) 0.1 % (0.0-2.0); EOSINOPHILS # (AUTO) 0.1 K/uL (0.0-0.7); EOSINOPHILS % (AUTO) 1.3 % (0.0-7.0); HEMOGLOBIN 12.9 g/dL (12.5-16.3); LYMPHOCYTES # (AUTO) 1.2 K/uL (20.0-40.0); LYMPHOCYTES % (AUTO) 18.5 % (20.5-51.5); MEAN CORPUSCULAR HEMOGLOBIN 29.9 uug (23.8-33.4); MEAN CORPUSCULAR HGB CONC 32 g/dL (32.5-36.3); MEAN CORPUSCULAR VOLUME 92.5 fL (73.0-96.2); MONOCYTES # (AUTO) 0.5 K/uL (2.0-10.0); MONOCYTES % (AUTO) 7.1 % (0.0-11.0); NEUTROPHILS # (AUTO) 4.7 K/uL (1.8-8.9); PLATELET COUNT (AUTO) 150 K/uL (152-348); RED BLOOD CELL COUNT(AUTO) 4.33 MIL/uL (4.06-5.63); WHITE BLOOD COUNT (AUTO) 6.5 K/uL (3.6-10.2)
[2019-08-13 05:51] LABS: CREATININE 0.9 mg/dL (0.6-1.3); POTASSIUM 3.8 mmol/L (3.5-5.1)
[2019-08-13 06:46] LABS: MAGNESIUM 2.3 mg/dL (1.8-2.4); PHOSPHOROUS 3.7 mg/dL (2.5-4.9)
[2019-08-13 08:00] VITALS: BP 115/57
--- NOTE | 2019-08-13 08:15 | NUR ---
Received patieny in Bed, Open eyes, Non verbal. On Oxygen at 4L via Nasal canula, saturating 95%. No signs of Pain or discomfort. NGT intact and patent, GTF tolerating well. Kept HOB at All time. Kept clean and comfortable. Will continue to monitor.
[2019-08-13] MEDS: levETIRAcetam 500 MG TABLET NG SCH ×2 (08:22→20:45)
[2019-08-13] MEDS: METFORMIN HCL 500 MG TABLET NG SCH ×2 (08:22→17:10)
[2019-08-13] MEDS: FAMOTIDINE 20 MG TABLET NG SCH (08:22)
[2019-08-13] MEDS: ZINC SULFATE 220 MG CAPSULE NG SCH (08:22)
[2019-08-13] MEDS: ENOXAPARIN SODIUM 40 MG/0.4 ML DISP.SYRIN SQ SCH (08:24)
[2019-08-13] MEDS: IV 1/2NS 1000 ML 1,000 ML IV PRN (09:58)
[2019-08-13 11:00] VITALS: BP 125/82
--- NOTE | 2019-08-13 11:23 | NUR ---
Clinical pharmacy note-Vancomycin dosing per pharmacy Subjective; To continue Vancomycin dosing on this patient for pneumonia with sepsis(Covid +) Objective: BUN 27 Scr 0.9 WBC 6.5 Temp 98.9 Vanco trough level on 08/10 at 2230: 6.6 Vanco trough level on 08/12 at 1030: 19 Ht 170.18cm Wt 71.214kg Assessment/Plan: Since vanco trough level is 19 mcg/ml, will change dose to Vancomycin 1gram IV every 14 hrs for estimated vanco trough level of 15 mcg/ml at steady state. 1st dose today at 1300. Plan to order vanco trough level before 4th dose of current regime (not yet ordered). Will monitor daily.
[2019-08-13] MEDS: GLUCERNA 1.2 1000ML LIQUID NG PRN (12:01)
[2019-08-13] MEDS: VANCOMYCIN IV 1,000 MG in IV DEXTROSE 5% 250 ML IV SCH (13:05)
[2019-08-13 17:00] VITALS: BP 118/76
--- NOTE | 2019-08-13 18:22 | NUR ---
Patient in bed, No signs of distress. Saturating 96% on 3L via Nasal Canula, No SOB noted. Afebrile. NO signs of Pain or discomfort. UA output of 1200 of Brandy colored UA via Izquierdo catheter. Kept clean and comfortable. Will Endorse to Oncoming Nurse.
[2019-08-13 20:12] VITALS: BP_SYST 114; BP_SYST 118; BP_DIAS 74; BP_DIAS 76
--- NOTE | 2019-08-13 22:28 | NUR ---
given due medication given via the ngt tube crushed meds and flushed with water .hob up and aspiration precaution observed.tf in progress and tolerating .
[2019-08-14 00:12] VITALS: BP 114/71
[2019-08-14] MEDS: VANCOMYCIN IV 1,000 MG in IV DEXTROSE 5% 250 ML IV SCH ×2 (00:47→15:47)
[2019-08-14 04:12] VITALS: BP 120/77
[2019-08-14] MEDS: CEFEPIME HCL 1 G in IV DEXTROSE 5% 50 ML IV SCH ×3 (05:12→22:13)
[2019-08-14 06:47] LABS: BASOPHILS % (AUTO) 0.2 % (0.0-2.0); EOSINOPHILS # (AUTO) 0.1 K/uL (0.0-0.7); EOSINOPHILS % (AUTO) 1.3 % (0.0-7.0); HEMATOCRIT 37.7 % (36.7-47.1); HEMOGLOBIN 12.3 g/dL (12.5-16.3); LYMPHOCYTES # (AUTO) 0.9 K/uL (20.0-40.0); LYMPHOCYTES % (AUTO) 13.5 % (20.5-51.5); MEAN CORPUSCULAR HEMOGLOBIN 29.7 uug (23.8-33.4); MEAN CORPUSCULAR HGB CONC 33 g/dL (32.5-36.3); MEAN CORPUSCULAR VOLUME 91.4 fL (73.0-96.2); MONOCYTES # (AUTO) 0.5 K/uL (2.0-10.0); MONOCYTES % (AUTO) 6.8 % (0.0-11.0); NEUTROPHILS # (AUTO) 5.2 K/uL (1.8-8.9); NEUTROPHILS % (AUTO) 78.2 % (38.5-71.5); PLATELET COUNT (AUTO) 187 K/uL (152-348); RED BLOOD CELL COUNT(AUTO) 4.13 MIL/uL (4.06-5.63); WHITE BLOOD COUNT (AUTO) 6.6 K/uL (3.6-10.2)
[2019-08-14 08:04] LABS: CREATININE 0.8 mg/dL (0.6-1.3); MAGNESIUM 2.3 mg/dL (1.8-2.4); POTASSIUM 3.4 mmol/L (3.5-5.1)
[2019-08-14] MEDS: ZINC SULFATE 220 MG CAPSULE NG SCH (08:12)
[2019-08-14] MEDS: levETIRAcetam 500 MG TABLET NG SCH ×2 (08:12→21:50)
[2019-08-14] MEDS: FAMOTIDINE 20 MG TABLET NG SCH (08:12)
[2019-08-14] MEDS: METFORMIN HCL 500 MG TABLET NG SCH ×2 (08:12→18:12)
[2019-08-14] MEDS: ENOXAPARIN SODIUM 40 MG/0.4 ML DISP.SYRIN SQ SCH (08:15)
[2019-08-14 08:30] VITALS: BP 115/69
[2019-08-14] MEDS: POTASSIUM CHLORIDE 50 ML IV SCH ×2 (10:45→11:45)
--- NOTE | 2019-08-14 11:40 | NUR ---
Clinical pharmacy note-Vancomycin dosing per pharmacy Subjective; To continue Vancomycin dosing on this patient for pneumonia with sepsis(Covid +) Objective: BUN 27 Scr 0.9 WBC 6.5 Temp 98.9 Vanco trough level on 08/10 at 2230: 6.6 Vanco trough level on 08/12 at 1030: 19 Ht 170.18cm Wt 71.214kg Assessment/Plan: Since vanco trough level is 19 mcg/ml, will change dose to Vancomycin 1gram IV every 14 hrs for estimated vanco trough level of 15 mcg/ml at steady state. 1st dose today at 0100. Plan to order vanco trough level before 4th dose of current regime (not yet ordered). Will monitor daily.
[2019-08-14 16:33] VITALS: BP 112/61
[2019-08-14 20:04] VITALS: BP 119/73
[2019-08-15 00:04] VITALS: BP 117/71
[2019-08-15 04:04] VITALS: BP 122/73
[2019-08-15] MEDS: VANCOMYCIN IV 1,000 MG in IV DEXTROSE 5% 250 ML IV SCH ×2 (04:19→18:30)
--- NOTE | 2019-08-15 05:04 | NUR ---
spoke with tyesha at outside pharmacy regarding vanco trough. ok to administer to patient. inhouse pharmacy will follow up with pulling another trough.
[2019-08-15] MEDS: CEFEPIME HCL 1 G in IV DEXTROSE 5% 50 ML IV SCH ×5 (05:32→22:14)
[2019-08-15] MEDS: IV 1/2NS 1000 ML 1,000 ML IV PRN (05:32)
--- NOTE | 2019-08-15 05:57 | NUR ---
patient slept intermittently. a/o x1. no s/s of acute distress. v/s stable. NSR on tele monitor. NC 3L. NG tube in place and intact. fall precautions in place. IV intact and patent. will continue to monitor.
[2019-08-15 06:22] LABS: BASOPHILS % (AUTO) 0.2 % (0.0-2.0); EOSINOPHILS # (AUTO) 0.1 K/uL (0.0-0.7); EOSINOPHILS % (AUTO) 1.2 % (0.0-7.0); HEMATOCRIT 34.9 % (36.7-47.1); HEMOGLOBIN 11.7 g/dL (12.5-16.3); LYMPHOCYTES # (AUTO) 0.8 K/uL (20.0-40.0); LYMPHOCYTES % (AUTO) 13.9 % (20.5-51.5); MEAN CORPUSCULAR HEMOGLOBIN 30.1 uug (23.8-33.4); MEAN CORPUSCULAR HGB CONC 33 g/dL (32.5-36.3); MEAN CORPUSCULAR VOLUME 90.1 fL (73.0-96.2); MONOCYTES # (AUTO) 0.5 K/uL (2.0-10.0); MONOCYTES % (AUTO) 8.7 % (0.0-11.0); NEUTROPHILS # (AUTO) 4.3 K/uL (1.8-8.9); PLATELET COUNT (AUTO) 220 K/uL (152-348); RED BLOOD CELL COUNT(AUTO) 3.88 MIL/uL (4.06-5.63); WHITE BLOOD COUNT (AUTO) 5.6 K/uL (3.6-10.2)
[2019-08-15 06:37] LABS: CREATININE 0.9 mg/dL (0.6-1.3); MAGNESIUM 2.2 mg/dL (1.8-2.4); PHOSPHOROUS 2.9 mg/dL (2.5-4.9); POTASSIUM 3.6 mmol/L (3.5-5.1)
[2019-08-15 08:00] VITALS: BP 132/72
[2019-08-15] MEDS: ZINC SULFATE 220 MG CAPSULE NG SCH (08:55)
[2019-08-15] MEDS: METFORMIN HCL 500 MG TABLET NG SCH ×2 (08:55→22:14)
[2019-08-15] MEDS: FAMOTIDINE 20 MG TABLET NG SCH (08:55)
[2019-08-15] MEDS: levETIRAcetam 500 MG TABLET NG SCH ×2 (08:55→22:14)
[2019-08-15] MEDS: ENOXAPARIN SODIUM 40 MG/0.4 ML DISP.SYRIN SQ SCH (09:11)
[2019-08-15] MEDS ORDERED: POTASSIUM CHLORIDE 20 MEQ POWDER PACKET NG ONE ×2 (09:30→14:00)
--- NOTE | 2019-08-15 12:10 | NUR ---
Clinical pharmacy note-Vancomycin dosing per pharmacy Subjective; To continue Vancomycin dosing on this patient for pneumonia with sepsis(Covid +) Objective: Ht 170.18cm Wt 71.214kg BUN 19 Scr 0.9 WBC 5.6 Temp 99.2 Vanco trough level on 08/10 at 2230: 6.6 Vanco trough level on 08/12 at 1030: 19 Vanco trough level pending tonight at 1830 Assessment/Plan: As renal function remains stable, will continue adjusted regimen of Vancomycin 1gram IV every 14 hrs for estimated vanco trough level of 15 mcg/ml at steady state. third dose was this early am at 0500. Trough pending for tonight at 1830. RN endorsed to hold if trough >20. Will check level in am and adjust as needed. Will follow
[2019-08-15] MEDS ORDERED: ACETAMINOPHEN 325 MG TABLET NG PRN (14:18)
[2019-08-15 16:00] VITALS: BP 95/50
[2019-08-15] MEDS: ACETAMINOPHEN 650 MG/20.3 ML LIQUID UDC NG PRN ×2 (17:48→22:14)
--- NOTE | 2019-08-15 18:25 | NUR ---
PATIENT IN BED WITH HOB ELEVATED. NO S/S OF SOB AND NO C/O PAIN AT THIS TIME. KEPT CLEAN AND DRY AT ALL TIMES. SAFETY AND COMFORT PROVIDED. IV INTACT AND PATENT. ALL DUE MEDS GIVEN ORDERED. WILL CONTINUE TO MONITOR.
--- NOTE | 2019-08-15 20:00 | NUR ---
RECEIVED PT IN NO ACUTE DISTRESS. IV INTACT. PT ON NASAL CANNULA. SAFETY AND COMFORT PROVIDED. WILL CONTINUE TO MONITOR.
[2019-08-15 20:32] VITALS: BP 90/51
[2019-08-16 01:29] VITALS: BP 104/55
[2019-08-16 05:14] VITALS: BP 100/62
[2019-08-16] MEDS: CEFEPIME HCL 1 G in IV DEXTROSE 5% 50 ML IV SCH ×3 (06:12→21:18)
--- NOTE | 2019-08-16 06:41 | NUR ---
PT IN NO ACUTE DISTRESS. PRESCRIBED MEDICATION GIVEN AND PT TOLERATED IT WELL. SAFETY AND COMFORT PROVIDED. PT TURNED AND REPOSITIONED. PT BECKHAM INTACT AND DWELLING WELL. IV INTACT. WILL ENDORSE TO INCOMING NURSE FOR CONTINUITY OF CARE.
[2019-08-16 07:06] LABS: BASOPHILS % (AUTO) 0.1 % (0.0-2.0); EOSINOPHILS # (AUTO) 0.1 K/uL (0.0-0.7); EOSINOPHILS % (AUTO) 1.5 % (0.0-7.0); LYMPHOCYTES # (AUTO) 0.8 K/uL (20.0-40.0); MEAN CORPUSCULAR HEMOGLOBIN 30.2 uug (23.8-33.4); MEAN CORPUSCULAR HGB CONC 33 g/dL (32.5-36.3); MEAN CORPUSCULAR VOLUME 90.5 fL (73.0-96.2); MONOCYTES # (AUTO) 0.6 K/uL (2.0-10.0); NEUTROPHILS # (AUTO) 4.4 K/uL (1.8-8.9); NEUTROPHILS % (AUTO) 74.4 % (38.5-71.5); PLATELET COUNT (AUTO) 240 K/uL (152-348); RED BLOOD CELL COUNT(AUTO) 3.98 MIL/uL (4.06-5.63); WHITE BLOOD COUNT (AUTO) 5.9 K/uL (3.6-10.2)
[2019-08-16 07:09] LABS: BILIRUBIN,TOTAL 0.7 mg/dL (0.2-1.0); CREATININE 0.7 mg/dL (0.6-1.3); MAGNESIUM 2.3 mg/dL (1.8-2.4); PHOSPHOROUS 2.7 mg/dL (2.5-4.9); POTASSIUM 3.7 mmol/L (3.5-5.1); TOTAL PROTEIN, SERUM 6.8 g/dL (6.4-8.2)
[2019-08-16 08:00] VITALS: BP 114/70
[2019-08-16] MEDS: VANCOMYCIN IV 1,000 MG in IV DEXTROSE 5% 250 ML IV SCH ×2 (08:49→20:28)
[2019-08-16] MEDS: ZINC SULFATE 220 MG CAPSULE NG SCH (08:50)
[2019-08-16] MEDS: levETIRAcetam 500 MG TABLET NG SCH ×2 (08:50→20:29)
[2019-08-16] MEDS: METFORMIN HCL 500 MG TABLET NG SCH ×2 (08:50→20:29)
[2019-08-16] MEDS: FAMOTIDINE 20 MG TABLET NG SCH (08:50)
[2019-08-16] MEDS: ENOXAPARIN SODIUM 40 MG/0.4 ML DISP.SYRIN SQ SCH (08:51)
--- NOTE | 2019-08-16 09:16 | NUR ---
Clinical pharmacy note-Vancomycin dosing per pharmacy Subjective; To continue Vancomycin dosing on this patient for pneumonia with sepsis(Covid +) Objective: Ht 170.18cm Wt 71.214kg BUN 17 Scr 0.7 WBC 5.9 Temp 98.2 Vanco trough level on 08/10 at 2230: 6.6 Vanco trough level on 08/12 at 1030: 19 Vanco trough level on 08/14 at 1830 : 8.1 Assessment/Plan: Since vanco trough is sub-therapeutic, will change dose of Vancomycin to 1gram IV every 12 hrs for estimated vanco trough level of 18 mcg/ml at steady state. 1st dose was this early am at 0800. Plan to draw vanco trough (not yet ordered). Will follow
[2019-08-16 09:29] LABS: BAND % (MANUAL) 2 % (0-10); LYMPHOCYTES % (MANUAL) 10 % (20-40); METAMYELOCYTES % 3 % (0-1); MONOCYTES % (MANUAL) 14 % (2-10); MYELOCYTES % 3 % (0-0); NEUTROPHILS % (MANUAL) 68 % (42-75)
[2019-08-16 11:00] VITALS: BP 136/71
[2019-08-16 16:00] VITALS: BP 109/70
[2019-08-16] MEDS: GLUCERNA 1.2 1000ML LIQUID NG PRN (18:18)
--- NOTE | 2019-08-16 19:30 | NUR ---
RECEIVED PT IN NO ACUTE DISTRESS. IV INTACT. BECKHAM INTACT. PT ON NASAL CANNULA. SAFETY AND COMFORT PROVIDED. WILL CONTINUE TO MONITOR.
[2019-08-16 20:05] VITALS: BP 103/69
[2019-08-16] MEDS: ACETAMINOPHEN 650 MG/20.3 ML LIQUID UDC NG PRN (20:29)
--- NOTE | 2019-08-17 | NUR ---
RESIDUAL TAKEN WAS 3O. NGTUBE FEEDING INCREASE TO 50 ML . PT TOLERATED IT WELL. PT IN NO ACUTE DISTRESS. WILL CONTINUE TO MONITOR.
[2019-08-17 00:30] VITALS: BP 110/65
[2019-08-17 04:00] VITALS: BP 120/64
--- NOTE | 2019-08-17 05:00 | NUR ---
RESIDUALTAKEN ON NGTUBE WAS 20. PT IN NO ACUTE DISTRESS. INCREASE FEEDING TO 60ML. WILL CONTINUE TO MONITOR.
[2019-08-17] MEDS: CEFEPIME HCL 1 G in IV DEXTROSE 5% 50 ML IV SCH ×3 (05:29→23:01)
--- NOTE | 2019-08-17 06:29 | NUR ---
PT IN NO ACUTE DISTRESS. PRESCRIBED MEDICATION GIVEN AND PT TOLERATED IT WELL. PT VITAL SIGNS WITHIN NORMAL LIMIT. NGTUBE FEEDING WELL. BECKHAM INTACT AND DWELLING WELL. PT AFEBRILE. TURNED AND REPOSITIONED. SAFETY AND COMFORT PROVIDED. ALL NEEDS ARE MET. WILL ENDORSE TO INCOMING NURSE FOR CONTINUITY OF CARE.
[2019-08-17 07:19] LABS: BASOPHILS % (AUTO) 0.1 % (0.0-2.0); EOSINOPHILS # (AUTO) 0.1 K/uL (0.0-0.7); EOSINOPHILS % (AUTO) 0.9 % (0.0-7.0); HEMATOCRIT 37.9 % (36.7-47.1); HEMOGLOBIN 12.5 g/dL (12.5-16.3); LYMPHOCYTES # (AUTO) 0.8 K/uL (20.0-40.0); LYMPHOCYTES % (AUTO) 12.8 % (20.5-51.5); MEAN CORPUSCULAR HEMOGLOBIN 29.9 uug (23.8-33.4); MEAN CORPUSCULAR HGB CONC 33 g/dL (32.5-36.3); MEAN CORPUSCULAR VOLUME 90.4 fL (73.0-96.2); MONOCYTES # (AUTO) 0.6 K/uL (2.0-10.0); MONOCYTES % (AUTO) 9.5 % (0.0-11.0); NEUTROPHILS # (AUTO) 4.9 K/uL (1.8-8.9); NEUTROPHILS % (AUTO) 76.7 % (38.5-71.5); PLATELET COUNT (AUTO) 296 K/uL (152-348); RED BLOOD CELL COUNT(AUTO) 4.19 MIL/uL (4.06-5.63); WHITE BLOOD COUNT (AUTO) 6.4 K/uL (3.6-10.2)
[2019-08-17 07:29] LABS: BILIRUBIN,TOTAL 0.6 mg/dL (0.2-1.0); CREATININE 0.9 mg/dL (0.6-1.3); MAGNESIUM 2.3 mg/dL (1.8-2.4); PHOSPHOROUS 2.6 mg/dL (2.5-4.9); POTASSIUM 3.7 mmol/L (3.5-5.1)
[2019-08-17 07:35] LABS: LACTATE DEHYDROGENASE 372 U/L (85-227)
[2019-08-17 08:00] VITALS: BP 98/60
[2019-08-17] MEDS: VANCOMYCIN IV 1,000 MG in IV DEXTROSE 5% 250 ML IV SCH ×2 (08:03→21:11)
[2019-08-17] MEDS: levETIRAcetam 500 MG TABLET NG SCH ×2 (08:03→21:11)
[2019-08-17] MEDS: ZINC SULFATE 220 MG CAPSULE NG SCH (08:03)
[2019-08-17] MEDS: METFORMIN HCL 500 MG TABLET NG SCH ×2 (08:03→21:11)
[2019-08-17] MEDS: FAMOTIDINE 20 MG TABLET NG SCH (08:03)
[2019-08-17 08:04] LABS: FERRITIN 736 ng/mL (26-388)
[2019-08-17] MEDS: ENOXAPARIN SODIUM 40 MG/0.4 ML DISP.SYRIN SQ SCH (08:04)
--- NOTE | 2019-08-17 09:50 | NUR ---
Clinical pharmacy note-Vancomycin dosing per pharmacy Subjective; To continue Vancomycin dosing on this patient for pneumonia with sepsis(Covid +) Objective: Ht 170.18cm Wt 71.214kg BUN 15 Scr 0.9 WBC 6.4 Temp 98.7 Vanco trough level on 08/10 at 2230: 6.6 Vanco trough level on 08/12 at 1030: 19 Vanco trough level on 08/14 at 1830 : 8.1 Assessment/Plan: Will continue same dose of Vancomycin to 1gram IV every 12 hrs for today estimated vanco trough level of 18 mcg/ml at steady state. 3rd dose today at 0800. Plan to draw vanco trough (ordered for today at 1930). Pharmacy will review the level when available & adjust the dose if needed. Will follow Addendum: 08/17/19 at 2112 by ONELIA LUNA ADM trough 11.1 ID discontinue vancomycin tomorrow 08/18/19 0600 Continue same dose of vancomycin 1gm for this evening dose
[2019-08-17 12:00] VITALS: BP 106/64
--- NOTE | 2019-08-17 12:37 | NUR ---
WOUND CARE CONSULT: RECEIVED CONSULT FROM NURSING STAFF FOR BILATERAL HEEL DEEP TISSUE INJURIES WHICH ARE INTACT PER RN. REVIEWED CHART, NURSING DOCUMENTATION AND PHOTOS. RECOMMENDATIONS MADE FOR SKIN PROTECTION AND WOUND CARE. DISCUSSED WITH NURSING STAFF. PT NOTED TO HAVE MULTIPLE CO-MORBIDITIES INCLUDING ACUTE COVID 19 INFECTION, HISTORY OF TRAUMATIC BRAIN INJURY, ENCEPHALOPATHY AND DIABETES. MD IN AGREEMENT WITH PLAN OF CARE. Addendum: 08/17/19 at 1246 by TRENA NOWAK RN CORRECTION: PER RN THERE IS INTACT DEEP TISSUE INJURY TO RT HEEL ONLY.
[2019-08-17] MEDS: GLUCERNA 1.2 1000ML LIQUID NG PRN (15:47)
[2019-08-17 16:00] VITALS: BP 97/60
--- NOTE | 2019-08-17 19:00 | NUR ---
Patient received from day shift RN. Patient has no s/s of acute distress. Patient has no s/s of pain. IV site patent. Patient is on NGT. Vitals are stable. Patient is Afebrile. Safety measures in place. Will continue with the plan of care.
[2019-08-17 20:00] VITALS: BP 111/69
[2019-08-18 04:00] VITALS: BP 114/73
[2019-08-18] MEDS: CEFEPIME HCL 1 G in IV DEXTROSE 5% 50 ML IV SCH (06:13)
--- NOTE | 2019-08-18 07:08 | NUR ---
Patient resting in bed. Patient has no s/s of acute distress. Patient has no s/s of pain. Patient on NGT, residual was 20. Feeding rate at 70 cc/hour. Vitals are stable. Patient is afebrile. Needs attended. Safety measures in place. Will endorse to the oncoming nurse for the continuity of care.
[2019-08-18 08:34] LABS: BASOPHILS % (AUTO) 0.3 % (0.0-2.0); EOSINOPHILS # (AUTO) 0.1 K/uL (0.0-0.7); EOSINOPHILS % (AUTO) 0.7 % (0.0-7.0); HEMOGLOBIN 12.3 g/dL (12.5-16.3); MEAN CORPUSCULAR HGB CONC 33 g/dL (32.5-36.3); MEAN CORPUSCULAR VOLUME 90.4 fL (73.0-96.2); MONOCYTES # (AUTO) 0.7 K/uL (2.0-10.0); MONOCYTES % (AUTO) 9.9 % (0.0-11.0); NEUTROPHILS # (AUTO) 5.5 K/uL (1.8-8.9); NEUTROPHILS % (AUTO) 75.1 % (38.5-71.5); PLATELET COUNT (AUTO) 336 K/uL (152-348); RED BLOOD CELL COUNT(AUTO) 4.09 MIL/uL (4.06-5.63); WHITE BLOOD COUNT (AUTO) 7.4 K/uL (3.6-10.2)
[2019-08-18 08:48] LABS: CREATININE 0.7 mg/dL (0.6-1.3); POTASSIUM 3.9 mmol/L (3.5-5.1)
[2019-08-18] MEDS: FAMOTIDINE 20 MG TABLET NG SCH (08:56)
[2019-08-18] MEDS: ZINC SULFATE 220 MG CAPSULE NG SCH (08:56)
[2019-08-18] MEDS: levETIRAcetam 500 MG TABLET NG SCH ×2 (08:56→21:57)
[2019-08-18] MEDS: METFORMIN HCL 500 MG TABLET NG SCH ×2 (08:57→21:57)
[2019-08-18] MEDS: ENOXAPARIN SODIUM 40 MG/0.4 ML DISP.SYRIN SQ SCH (09:02)
[2019-08-18] MEDS: GLUCERNA 1.2 1000ML LIQUID NG PRN (09:46)
[2019-08-18 11:00] VITALS: BP 96/61
--- NOTE | 2019-08-18 11:35 | NUR ---
swallow eval failed, PARACHUTE SUPERVISOR DMITIRY made aware, with order to repeat swallow eval [place], order placed
[2019-08-18 16:00] VITALS: BP 101/63
--- NOTE | 2019-08-18 17:28 | NUR ---
patient is in bed, NG tube intact, in place, feeding is running at 70cc/hr, no residual noted, abdomen soft and nondistended, patient is bed bound, olsen catheter is intact, draining good amount of urine, both heels floated, repositioned every 2 hours to relieve the pressure, good oral care provided, continue with care.
--- NOTE | 2019-08-18 20:00 | NUR ---
patient received into care, resting in bed. Patient is alert/oriented x1 and has no s/s of acute distress or discomfort noted/observed by nurse. All safety, isolation, and seizure precautions are in place. Call light and personal items are within reach at all times. Will continue to monitor and assess.
[2019-08-18 20:48] VITALS: BP 105/63
[2019-08-19 00:33] VITALS: BP 103/69
[2019-08-19 04:54] VITALS: BP 100/64
--- NOTE | 2019-08-19 06:00 | NUR ---
PATIENT SLEPT INTERMITTENTLY THROUGHOUT NIGHT WITH NO S/S OF ACUTE DISTRESS/DISCOMFORT NOTED OR OBSERVED BY NURSE. NGT IS PATENT AND IN PLACE. ALL PRESCRIBED MEDICATIONS PROVIDED ORDERED, WITH NO ADVERSE SIDE EFFECTS NOTED OR OBSERVED BY NURSE. ALL SAFETY, FALL, ISOLATION, AND SEIZURE PRECAUTIONS REMAIN IN PLACE. PERSONAL ITEMS AND CALL LIGHT REMAIN WITHIN REACH.
[2019-08-19 08:00] VITALS: BP 113/71
[2019-08-19] MEDS: levETIRAcetam 500 MG TABLET NG SCH ×2 (09:16→21:09)
[2019-08-19] MEDS: ZINC SULFATE 220 MG CAPSULE NG SCH (09:16)
[2019-08-19] MEDS: METFORMIN HCL 500 MG TABLET NG SCH ×2 (09:16→21:09)
[2019-08-19] MEDS: FAMOTIDINE 20 MG TABLET NG SCH (09:16)
[2019-08-19] MEDS: ACETAMINOPHEN 650 MG/20.3 ML LIQUID UDC NG PRN (09:18)
[2019-08-19] MEDS: ENOXAPARIN SODIUM 40 MG/0.4 ML DISP.SYRIN SQ SCH (09:19)
[2019-08-19 15:32] VITALS: BP 108/67
--- NOTE | 2019-08-19 18:28 | NUR ---
EOS: No significant acute changes during this shift. Pt. remain afebrile, in no distress. Tolerating tube feeding via NGT. Pt. weaned down to 2LPM via NC with SpO2 of 98-99%. Pt. received all due medications. On ADAMARIS, skin care rendered, offloaded JARRET heels, no new skin condition. F/C with yellow clear urine output. Remain on isolation precaution for COVID-19. Safety measures in place. Will endorsed to oncoming shift accordingly.
--- NOTE | 2019-08-19 20:00 | NUR ---
PATIENT RECEIVED INTO CARE, LAYING BED RESTING COMFORTABLY. PATIENT HAS NO S/S OF ACUTE DISTRESS OR DISCOMFORT NOTED OR OBSERVED BY NURSE. NGT IS IN PLACE AND GLUCERNA 1.2 IS RUNNING AT 70CC/HR. ALL SAFETY, FALL, SEIZURE, AND ISOLATION PRECAUTIONS ARE IN PLACE. CALL LIGHT AND PERSONAL ITEMS ARE WITHIN REACH AT ALL TIMES. WILL CONTINUE TO MONITOR AND ASSESS.
[2019-08-19 20:39] VITALS: BP 104/66
[2019-08-20 04:08] VITALS: BP 106/63
--- NOTE | 2019-08-20 04:27 | NUR ---
VICE PRESIDENT BUSINESS DEVELOPMENT NOTIFIED NURSE THAT NGT WAS NO LONGER IN PLACE AND LAYING ON PT'S BED. NURSE NOTIFIED CHARGE. WILL WAIT FOR FURTHER DIRECTION.
--- NOTE | 2019-08-20 06:00 | NUR ---
Patient slept intermittently thoughout night with s/s of acute distress or discomfort noted/observed by nurse. Pt's NGT was found on bed at 0427h and nurse determined that Pt had pulled out NGT. Charge nurse was notified. All prescribed medications provided as ordered and tolerated well with no s/s of adverse reactions noted/observed by nurse. All patient care was addressed and pt is warm, dry, and comfortable. All safety, isolation, seizure and fall precaution measures remain in place.
[2019-08-20 06:35] LABS: CREATININE 0.7 mg/dL (0.6-1.3); PHOSPHOROUS 3.1 mg/dL (2.5-4.9); POTASSIUM 4.2 mmol/L (3.5-5.1)
[2019-08-20 07:06] LABS: BASOPHILS % (AUTO) 0.1 % (0.0-2.0); EOSINOPHILS % (AUTO) 0.1 % (0.0-7.0); HEMATOCRIT 36.2 % (36.7-47.1); HEMOGLOBIN 12.2 g/dL (12.5-16.3); LYMPHOCYTES # (AUTO) 1.1 K/uL (20.0-40.0); LYMPHOCYTES % (AUTO) 14.6 % (20.5-51.5); MEAN CORPUSCULAR HEMOGLOBIN 30.3 uug (23.8-33.4); MEAN CORPUSCULAR HGB CONC 34 g/dL (32.5-36.3); MONOCYTES # (AUTO) 0.7 K/uL (2.0-10.0); MONOCYTES % (AUTO) 8.9 % (0.0-11.0); NEUTROPHILS # (AUTO) 5.7 K/uL (1.8-8.9); NEUTROPHILS % (AUTO) 76.3 % (38.5-71.5); PLATELET COUNT (AUTO) 330 K/uL (152-348); RED BLOOD CELL COUNT(AUTO) 4.02 MIL/uL (4.06-5.63); WHITE BLOOD COUNT (AUTO) 7.4 K/uL (3.6-10.2)
--- NOTE | 2019-08-20 07:30 | NUR ---
received patient in bed, asleep, easy to awake, confused. no signs of distress at this time. will continue to monitor.
[2019-08-20 07:58] LABS: BAND % (MANUAL) 2 % (0-10); EOSINOPHILS % (MANUAL) 3 % (0-8); LYMPHOCYTES % (MANUAL) 8 % (20-40); METAMYELOCYTES % 3 % (0-1); MONOCYTES % (MANUAL) 13 % (2-10); NEUTROPHILS % (MANUAL) 71 % (42-75)
[2019-08-20 11:00] VITALS: BP 106/67
--- NOTE | 2019-08-20 11:00 | NUR ---
size 18 ng tube placed to the right nostril at 47. audible gurgling heard when auscultated the abd. waiting for chest xray results befor continuing feeding and medication.
[2019-08-20] MEDS: METFORMIN HCL 500 MG TABLET NG SCH ×2 (13:00→21:43)
[2019-08-20] MEDS: levETIRAcetam 500 MG TABLET NG SCH ×2 (13:00→21:43)
--- NOTE | 2019-08-20 13:00 | NUR ---
NG tube placement confirmed with chest xray. tube feeding and medication restarted.
[2019-08-20] MEDS: FAMOTIDINE 20 MG TABLET NG SCH (13:01)
[2019-08-20] MEDS: ZINC SULFATE 220 MG CAPSULE NG SCH (13:01)
[2019-08-20] MEDS: GLUCERNA 1.2 1000ML LIQUID NG PRN (13:14)
[2019-08-20] MEDS: ENOXAPARIN SODIUM 40 MG/0.4 ML DISP.SYRIN SQ SCH (13:14)
[2019-08-20 16:00] VITALS: BP 110/69
--- NOTE | 2019-08-20 18:24 | NUR ---
patient in bed, nonverbal and confused. no signs of distress noted at this time. patient is tolerating tube feeding with 0 residual at this time. safety and fall prevention in place. call light in reach, bed in low and locked position. will report to oncoming nurse.
[2019-08-20 20:19] VITALS: BP 107/63
--- NOTE | 2019-08-20 23:08 | NUR ---
Patient is in bed, awake, no distress noted. No Residual from NG tube. Currently the cannula is out of the nose, SpO2 is 96%. Reapplied cannula at 1L, SpO2 is 95to 96 %. No respiratory distress observed.
[2019-08-21 05:52] VITALS: BP 100/63
[2019-08-21] MEDS: GLUCERNA 1.2 1000ML LIQUID NG PRN (05:53)
--- NOTE | 2019-08-21 07:00 | NUR ---
Received pt in bed awake but non-verbal and doesn't obey commands. On O2 @ 1L NC with no SOB and distress noted at this time. NG tube in place with feedings. IV on IRISH midline TKO patent. Izquierdo catheter draining clear and yellow urine. Mepilex applied on bilateral heels for DTI. Bed locked in lowest position with siderails 3x up. WIll continue to monitor.
[2019-08-21 07:34] LABS: BASOPHILS % (AUTO) 0.3 % (0.0-2.0); EOSINOPHILS % (AUTO) 0.6 % (0.0-7.0); LYMPHOCYTES # (AUTO) 1.1 K/uL (20.0-40.0); MEAN CORPUSCULAR HEMOGLOBIN 30.3 uug (23.8-33.4); MEAN CORPUSCULAR HGB CONC 34 g/dL (32.5-36.3); MEAN CORPUSCULAR VOLUME 90.5 fL (73.0-96.2); MONOCYTES # (AUTO) 0.7 K/uL (2.0-10.0); MONOCYTES % (AUTO) 10.7 % (0.0-11.0); NEUTROPHILS # (AUTO) 4.5 K/uL (1.8-8.9); NEUTROPHILS % (AUTO) 70.4 % (38.5-71.5); PLATELET COUNT (AUTO) 320 K/uL (152-348); RED BLOOD CELL COUNT(AUTO) 4.31 MIL/uL (4.06-5.63); WHITE BLOOD COUNT (AUTO) 6.3 K/uL (3.6-10.2)
[2019-08-21 08:03] LABS: CREATININE 0.9 mg/dL (0.6-1.3); MAGNESIUM 2.1 mg/dL (1.8-2.4); PHOSPHOROUS 2.9 mg/dL (2.5-4.9); POTASSIUM 4.1 mmol/L (3.5-5.1)
[2019-08-21] MEDS: FAMOTIDINE 20 MG TABLET NG SCH (08:50)
[2019-08-21] MEDS: METFORMIN HCL 500 MG TABLET NG SCH ×2 (08:50→20:49)
[2019-08-21] MEDS: ZINC SULFATE 220 MG CAPSULE NG SCH (08:50)
[2019-08-21] MEDS: levETIRAcetam 500 MG TABLET NG SCH ×2 (08:50→20:49)
[2019-08-21] MEDS: ENOXAPARIN SODIUM 40 MG/0.4 ML DISP.SYRIN SQ SCH (09:38)
--- NOTE | 2019-08-21 16:00 | NUR ---
Gtube feeding checked, no residual.
[2019-08-21 16:16] VITALS: BP 90/56
--- NOTE | 2019-08-21 20:11 | NUR ---
Called [facility] for DC transfer instructions, endorsed to Nik ABDI. DC forms and instructions completed and co-signed with Navarro ABDI. Will endorse to shift nurseNavarro.
--- NOTE | 2019-08-21 21:20 | NUR ---
Patient has left the hospital, vitals are stable, report given to the EMS.
== END 2019-08-21 21:30 | DRG 871 ==
LOC: ER 16:05 → TELE3 20:14 → CCU 08-02 11:31 → TELE3 08-04 16:24 → TELE 08-12 14:57 → MED 08-17 09:25
PROVIDERS: ADMIT Internal Medicine; ATTEND Nurse Practitioner Acute Care
PROC: 05HY33Z Insertion of Infusion Device into Upper Vein, Percutaneous Approach (ICD-10-PCS; 2019-08-02)
PROC: 05HB33Z Insertion of Infusion Device into Right Basilic Vein, Percutaneous Approach (ICD-10-PCS; principal; 2019-08-10)
DX: A41.89 Other specified sepsis (principal); U07.1 COVID-19; J12.89 Other viral pneumonia; G92 Toxic encephalopathy; E43 Unspecified severe protein-calorie malnutrition; J96.01 Acute respiratory failure with hypoxia; J69.0 Pneumonitis due to inhalation of food and vomit; J15.212 Pneumonia due to Methicillin resistant Staphylococcus aureus; N39.0 Urinary tract infection, site not specified; D68.69 Other thrombophilia; E87.0 Hyperosmolality and hypernatremia; J98.11 Atelectasis; G40.909 Epilepsy, unspecified, not intractable, without status epilepticus; E11.9 Type 2 diabetes mellitus without complications; E88.09 Other disorders of plasma-protein metabolism, not elsewhere classified; E55.9 Vitamin D deficiency, unspecified; E87.6 Hypokalemia; F03.90 Unspecified dementia, unspecified severity, without behavioral disturbance, psychotic disturbance, mood disturbance, and anxiety; F32.9 Major depressive disorder, single episode, unspecified; F41.9 Anxiety disorder, unspecified; K76.1 Chronic passive congestion of liver; R74.0 Nonspecific elevation of levels of transaminase and lactic acid dehydrogenase [LDH]; Z87.440 Personal history of urinary (tract) infections; Z87.820 Personal history of traumatic brain injury; Z86.14 Personal history of Methicillin resistant Staphylococcus aureus infection; N40.1 Benign prostatic hyperplasia with lower urinary tract symptoms; R13.10 Dysphagia, unspecified; G93.89 Other specified disorders of brain; D69.59 Other secondary thrombocytopenia; R94.31 Abnormal electrocardiogram [ECG] [EKG]; Z68.24 Body mass index [BMI] 24.0-24.9, adult
CPT/HCPCS: 36415; 36600; 51702; 70030-TC; 71045; 83605; 83615; 83690; 83735; 84100; 85025; 85651; 85730; 86140; 87040; 87070; 87077; 87086; 87400; 93005; A4217; A4663; C1758; G0378; J0456; J0692; J1650; J1940; J2185; J3370; J3475; J3480; J3490; J7030; J7040; J7050; J7060

== ENCOUNTER 2019-09-01 16:20 | Emergency (ER) | payer MEDICARE, OTHER ==
[~2019-09-01] VITALS: Ht 167.6 cm; Wt 65.3 kg
[~2019-09-01 16:20] MED LIST changes: +ACCUCHECK; +ACET-73 PO; +BISA10SU61 RC; -CHOL10005 PO; +FAMO20TA8 PO; +MAGN400O6 PO; +METF-440 PO; +MULT1TAB73 PO; +NA P133E RC; -OSEL75CA PO; -RANI150T8 PO; -TRAM50TA2 PO; +VITAMIND3 PO
--- NOTE | 2019-09-01 17:00 | NUR ---
ng tube place with out difficulty. pt tolerated well.
--- NOTE | 2019-09-01 17:06 | NUR ---
called [facility], the same ambulance that brought the pt here. eta [id number].
--- NOTE | 2019-09-01 18:36 | NUR ---
called [facility] at let them know that the pt is coming back
--- NOTE | 2019-09-01 18:48 | NUR ---
[facility] at bedside to take the pt back to [facility].
[2019-09-01 18:49] VITALS: BP 101/77
== END 2019-09-01 19:06 ==
LOC: ER 16:24
PROC: 0DH67UZ Insertion of Feeding Device into Stomach, Via Natural or Artificial Opening (ICD-10-PCS; principal; 2019-09-01)
DX: Z46.59 Encounter for fitting and adjustment of other gastrointestinal appliance and device (principal); R13.10 Dysphagia, unspecified; G40.909 Epilepsy, unspecified, not intractable, without status epilepticus; F03.90 Unspecified dementia, unspecified severity, without behavioral disturbance, psychotic disturbance, mood disturbance, and anxiety; Z87.820 Personal history of traumatic brain injury; G93.40 Encephalopathy, unspecified
CPT/HCPCS: 74018; A4663